=== PATIENT | female | born 1965 | race Caucasian/White ===

== ENCOUNTER 2020-11-21 15:20 | Outpatient (REF) | payer OTHER, SELFPAY ==
--- NOTE | ~2020-11-21 | MM_ITS ---
EXAMINATION: MM SCREENING DIGITAL BREAST TOMOSYNTHESIS, BILATERAL CLINICAL INFORMATION: Screening. Asymptomatic. History right breast cancer 2010 and benign right breast biopsy 2013 (lipoma). Due for yearly. COMPARISON: Mammography: 06/24/2019; outside mammography 05/28/2018 ([facility], [place], [place]). TECHNIQUE: Digital breast tomosynthesis is performed in both the craniocaudal and mediolateral oblique views along with computer-aided detection (CAD). Synthesized 2D images are generated from the tomosynthesis. FINDINGS: The breasts are heterogeneously dense, which may obscure small masses (ACR BI-RADS breast composition Category c). There are no significant masses, abnormal calcifications, or other abnormalities. Breast tissue composition borders on average fibroglandular. Parenchymal pattern is similar to prior studies. There are stable post therapy changes on the right with scarring mid to posterior 11:30 o'clock position. The axilla and skin contours are unremarkable. MM/MM tomosynthesis screening BI IMPRESSION: No mammographic evidence of malignancy. Post therapy changes right breast. ASSESSMENT: BI-RADS 2: Benign RECOMMENDATION: Routine annual mammography screening. This patient's information was entered into a reminder system with a target due date for their next mammogram.
== END 2020-11-21 15:21 | disposition home or self-care (01) ==
LOC: HO.MAMMO 15:20
PROVIDERS: PCP Internal Medicine; Visit Provider Internal Medicine
DX: Z12.31 Encounter for screening mammogram for malignant neoplasm of breast (principal)
CPT/HCPCS: 77063; 77067

== ENCOUNTER 2021-11-22 15:29 | Outpatient (REF) | payer OTHER, SELFPAY ==
--- NOTE | ~2021-11-22 | MM_ITS ---
EXAMINATION: MM SCREENING DIGITAL BREAST TOMOSYNTHESIS, BILATERAL CLINICAL INFORMATION: Screening. Asymptomatic. COMPARISON: Mammography: November 21, 2020 and studies dating back to June 01, 2010 TECHNIQUE: Digital breast tomosynthesis is performed in both the craniocaudal and mediolateral oblique views along with computer-aided detection (CAD). Synthesized 2D images are generated from the tomosynthesis. FINDINGS: The breasts are heterogeneously dense, which may obscure small masses (ACR BI-RADS breast composition Category c). There is a stable parenchymal pattern seen bilaterally. Region of architectural distortion from previous lumpectomy is seen about the superior aspect of the right breast. No new suspicious grouping of microcalcifications or abnormal dominant mass identified. MM/MM tomosynthesis screening BI IMPRESSION: There are no significant changes from prior study. ASSESSMENT: BI-RADS 2: Benign RECOMMENDATION: Routine annual mammography screening. This patient's information was entered into a reminder system with a target due date for their next mammogram.
== END 2021-11-22 15:30 | disposition home or self-care (01) ==
LOC: HO.MAMMO 15:29
PROVIDERS: Visit Provider Internal Medicine
DX: Z12.31 Encounter for screening mammogram for malignant neoplasm of breast (principal)
CPT/HCPCS: 77063; 77067

== ENCOUNTER 2021-12-19 14:02 | Outpatient (REF) | payer OTHER, SELFPAY ==
--- NOTE | ~2021-12-19 | US_ITS ---
EXAMINATION: US PELVIS CLINICAL INFORMATION: Irregular menstruation. COMPARISON: Ultrasound pelvis 07/23/2019 TECHNIQUE: Ultrasound of the pelvis is performed using both transabdominal and transvaginal transducers along with Doppler. Transvaginal imaging is performed due to inadequate visualization transabdominally. FINDINGS: Uterus: The uterus is anteverted, anteflexed and measures 11.3 cm in length, 5.6 mL in AP and 7.0 cm in transverse dimension. The double wall endometrial thickness is 0.7 cm. There is trace fluid visualized in the endometrial canal. The uterus is smooth in contour and has normal myometrial echogenicity. There are two (2) hypoechoic lesions visualized: 1. Lesion in the posterior upper body of uterus measuring 1.6 x 1.0 x 1.3 cm. Previously it measured 1.3 x 1.2 x 1.4 cm. 2. Lesion in the right posterior body of uterus measuring 1.6 x 1.2 x 0.9 cm. It is new. Adnexa: Both ovaries are visualized. There is normal color flow to the adnexa. There is no ovarian torsion. There is no pelvic ascites or fluid collection. Right ovary measures 1.8 x 1.0 x 1.8 cm and volume 1.7 mL. There is echogenic calcification with some fluid surrounding the ovary likely within the fallopian tube, question hydrosalpinx. Left ovary measures 1.3 x 0.9 x 0.9 cm. Ovary is best visualized on transabdominal ultrasound. There is anechoic cyst measuring 1.3 x 0.9 x 0.9 cm. US/US pelvic and transvaginal IMPRESSION: 1. At least 2 uterine fibroids noted. 2. Right hydrosalpinx is suspected. 3. Simple cyst left ovary.
== END 2021-12-19 14:03 | disposition home or self-care (01) ==
LOC: HO.US 14:02
PROVIDERS: PCP Internal Medicine; Visit Provider Advanced Practice Midwife
DX: R23.2 Flushing (principal); N92.6 Irregular menstruation, unspecified
CPT/HCPCS: 36415; 76830; 76856; 83001

== ENCOUNTER 2022-01-02 13:39 | Outpatient (REF) | payer OTHER, SELFPAY ==
[2022-01-06 00:27] LABS: HPV mRNA E6/E7 rflx Not Detected (Not Detected)
== END 2022-01-02 13:40 | disposition home or self-care (01) ==
LOC: HO.LAB 13:39
PROVIDERS: PCP Internal Medicine; Visit Provider Advanced Practice Midwife
DX: Z12.4 Encounter for screening for malignant neoplasm of cervix (principal); Z11.51 Encounter for screening for human papillomavirus (HPV); N93.9 Abnormal uterine and vaginal bleeding, unspecified; N95.0 Postmenopausal bleeding
CPT/HCPCS: 58100; 87624; 88142; 88305

== ENCOUNTER → 2022-01-26 13:17 | Outpatient (BNVA) | payer OTHER, SELFPAY | PROVIDERS: PCP Internal Medicine; Visit Provider Advanced Practice Midwife | DX: Z71.2 Person consulting for explanation of examination or test findings (principal); N92.6 Irregular menstruation, unspecified | CPT/HCPCS: 99212 ==

== ENCOUNTER 2022-12-27 09:06 | Outpatient (REF) | payer OTHER, SELFPAY ==
--- NOTE | ~2022-12-27 | MM_ITS ---
EXAMINATION: MM SCREENING DIGITAL BREAST TOMOSYNTHESIS, BILATERAL CLINICAL INFORMATION: Screening. Asymptomatic. The patient is status post right breast excision for a lipoma in the remote past. COMPARISON: Mammography: This study is compared with prior exams dating back to 2019. TECHNIQUE: Digital breast tomosynthesis is performed in both the craniocaudal and mediolateral oblique views along with computer-aided detection (CAD). Synthesized 2D images are generated from the tomosynthesis. FINDINGS: The breasts are heterogeneously dense, which may obscure small masses (ACR BI-RADS breast composition Category c). There are no significant masses, abnormal calcifications, or other abnormalities. There are architectural changes in the right breast from prior surgery for benign disease. MM/MM tomosynthesis screening BI IMPRESSION: No mammographic evidence of malignancy. ASSESSMENT: BI-RADS BI-RADS 2 - Benign Findings RECOMMENDATION: Routine annual mammography screening. 1 year F/U This examination should not preclude the clinical evaluation of a suspicious palpable abnormality. This patient's information was entered into a reminder system with a target due date for their next mammogram.
== END 2022-12-27 09:07 | disposition home or self-care (01) ==
LOC: HO.MAMMO 09:06
PROVIDERS: PCP Internal Medicine; Visit Provider Internal Medicine
DX: Z12.31 Encounter for screening mammogram for malignant neoplasm of breast (principal)
CPT/HCPCS: 77063; 77067

== ENCOUNTER → 2022-12-27 09:15 | Outpatient (BNV) | payer OTHER, SELFPAY | PROVIDERS: PCP Internal Medicine; Visit Provider Radiology Diagnostic Radiology | DX: Z12.31 Encounter for screening mammogram for malignant neoplasm of breast (principal) | CPT/HCPCS: 77063; 77067 ==

== ENCOUNTER 2022-12-27 09:41 | Outpatient (AMB) | payer OTHER, SELFPAY ==
--- NOTE | 2022-12-27 09:57 | A.OFFVIS_ITS ---
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 Scribed for SHAWN Soto by Rossana Springer vp medical, on 12/27/2022 at 10:20 am EST. Filler Shaker: Filler Shaker Present (Trish) Allergies No Known Allergies Allergy (Verified 12/27/22 09:58) Is last menstrual period known: Yes Last menstrual period: 12/11/22 HPI HPI Comments History of Present Illness Details She is a premenopausal woman presenting for annual exam. Reports emotion melt downs. Denies any new onset stresses. Patient admits she tries to eat a healthy diet including Calcium and Vitamin D. She stays active with exercise. She had her menses for the past 2 months but did not have it for 6 months prior. LMP 12/11/22. Denies vaginal itching and irritation. Reports itching in inner left thigh and has use OTC cortisone. Denies family hx of colon and ovarian cancer. Last pap smear 01/02/22. Last mammogram today, pending results. UTD on colonoscopy. 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 Sexual orientation: Straight/Heterosexual Gender identity: Female Female Reproductive History Menstrual Duration of menses: 6-7 days Date of last menstrual period: 12/11/22 control method: permanent sterilization Permanent Sterilization: BTL Total pregnancies: 2 Full term: 2 Number of Living Children: 2 Date of last pap smear: 01/02/22 (neg pap and hpv) Date of Mammogram: 11/22/21 ([facility]) Physical Exam Vital Signs: Last Vital Signs BP 110/74 12/27/22 09:58 BMI result Body Mass Index 29.5 Const General: cooperative, healthy appearing, no acute distress, well developed and alert Orientation/consciousness: patient oriented x3 HEENT Head: Yes normal to inspection Eyes General: appearance normal, both eyes and all related structures Neck Neck: Yes normal visual inspection Thyroid: Thyroid normal Chest Chest palpation & inspection: normal inspection of the chest Breast/axilla inspection: normal inspection of the breasts (no puckering, dimpling, peau de orange, retraction, discharge, masses) Breast/axilla palpation: normal palpation of the breasts Resp Effort & Inspection: normal respiratory effort GI Inspection: Yes normal to inspection Palpation (GI): Soft to palpation (to palpation) Rectal Exam - Female: deferred General: Yes bladder normal to inspection External Female Exam: normal external appearance and normal appearance of the urethra Speculum Exam - Vagina: normal appearance of the vagina, normal palpation and normal vaginal discharge Speculum Exam - Cervix: normal appearance of the cervix and normal palpation Bimanual exam- vagina & uterus: normal palpation and normal palpation Bimanual Exam- Adnexa, other: normal adnexae and no masses Skin Other: itching area in the left upper in thigh with a scratch Neuro General: patient oriented x3 Cognition (Neuro): normal cognition Extrem General: Yes normal to inspection Psych Attitude: cooperative Thought process: Normal thought process present Results Reviewed Results Reviewed: EXAMINATION:? US PELVIS CLINICAL INFORMATION:? Irregular menstruation. COMPARISON: Ultrasound pelvis 07/23/2019 TECHNIQUE: Ultrasound of the pelvis is performed using both transabdominal and transvaginal transducers along with Doppler. Transvaginal imaging is performed due to inadequate visualization transabdominally. FINDINGS: Uterus: The uterus is anteverted, anteflexed and measures 11.3 cm in length, 5.6 mL in AP and 7.0 cm in transverse dimension. The double wall endometrial thickness is 0.7 cm. There is trace fluid visualized in the endometrial canal. The uterus is smooth in contour and has normal myometrial echogenicity. ? There are two (2) hypoechoic lesions visualized: 1. Lesion in the posterior upper body of uterus measuring 1.6 x 1.0 x 1.3 cm. Previously it measured 1.3 x 1.2 x 1.4 cm. 2. Lesion in the right posterior body of uterus measuring 1.6 x 1.2 x 0.9 cm. It is new. Adnexa: Both ovaries are visualized. There is normal color flow to the adnexa. There is no ovarian torsion.? There is no pelvic ascites or fluid collection. Right ovary measures 1.8 x 1.0 x 1.8 cm and volume 1.7 mL. There is echogenic calcification with some fluid surrounding the ovary likely within the fallopian tube, question hydrosalpinx. Left ovary measures 1.3 x 0.9 x 0.9 cm. Ovary is best visualized on transabdominal ultrasound. There is anechoic cyst measuring 1.3 x 0.9 x 0.9 cm. US/US pelvic and transvaginal IMPRESSION: ? 1. At least 2 uterine fibroids noted. ? 2. Right hydrosalpinx is suspected. ? 3. Simple cyst left ovary. Collected: 01/02/22 Location: [facility] Received: 01/03/22 Diagnosis Endometrium, biopsy:? Disordered weakly proliferative endometrium; no atypia or hyperplasia identified. Clinical History PMB Microscopic Description Microscopic sections reviewed. Material Received Endometrial biopsy Gross Description Received in formalin labeled EMB is a 1.8 x 1.5 x 0.45 cm. aggregate of multiple soft, congested and hemorrhagic, red-maroon tissue fragments and blood.? The specimen is submitted in toto in a single cassette labeled A. Assessment & Plan Assessment & Plan (1) Encounter for well woman exam: Code(s): Z01.419 - Encounter for gynecological examination (general) (routine) without abnormal findings Plan: Discussed: Current recommendations for pap smears per ASCCP guidelines. Breast awareness and periodic self breast exams. Encouraged yearly mammograms. Maintaining a healthy lifestyle including a well balanced diet including Calcium and Vitamin D and routine exercise. All of her questions and concerns were addressed to the best of my ability RTO in 1 year for AG. (2) PMB (postmenopausal bleeding): Code(s): N95.0 - Postmenopausal bleeding Plan: Discussed work up including pelvic US and EMB. The EMB purpose was explained to rule out atypia, hyperplasia and uterine cancer. Reviewed procedure and instructed to take ibuprofen with food 1 hour prior to procedure. Go to ER with any prolonged or heavy bleeding. All of her questions and concerns were addressed to the best of my ability and shared decision making: for EMBx. She is agreeable to plan of care. Return in 2 weeks for test results and EMBX. (3) Fibroids: Code(s): D21.9 - Benign neoplasm of connective and other soft tissue, unspecified Plan: Leiomyoma: common pelvic neoplasm. Differential diagnosis-may include leiomyosarcoma which is a rare uterine sarcoma 3-7/100,000, difficult to dist inguish from fibroids on ultrasound from uterine sarcoma's. Unlikely any single test will have a highly positive predictive value. Hysterectomy is not recommended for sole purpose of excluding malignant neoplasm. Report any PMB/AUB, pelvic pressure, bloating, or pain. Pelvic US ordered for management. Expectant management follow up in 6 months, then yearly for stability. (4) Pruritus: Code(s): L29.9 - Pruritus, unspecified Plan: Advised to use OTC hydrocortisone and wear loose clothing or boys shorts. Orders: Orders US pelvic and transvaginal Today D21.9 - Benign neoplasm of connective and other soft tissue, unspecified, N95.0 - Postmenopausal bleeding Coding Level of Care Code Est Pt Prev Care 40-64y(40431) Diagnoses Encounter for well woman exam Z01.419 PMB (postmenopausal bleeding) N95.0 Fibroids D21.9 Pruritus L29.9
[2022-12-27 09:58] VITALS: BP 110/74; BMI 29.5
== END 2022-12-27 10:39 | disposition home or self-care (01) ==
LOC: HO.HWS 09:41
PROVIDERS: PCP Internal Medicine; Visit Provider Advanced Practice Midwife
DX: Z01.419 Encounter for gynecological examination (general) (routine) without abnormal findings (principal); N95.0 Postmenopausal bleeding; D21.9 Benign neoplasm of connective and other soft tissue, unspecified; L29.9 Pruritus, unspecified
CPT/HCPCS: 99396

== ENCOUNTER 2023-01-02 10:51 | Outpatient (REF) | payer OTHER, SELFPAY ==
--- NOTE | ~2023-01-02 | US_ITS ---
EXAMINATION: US PELVIS CLINICAL INFORMATION: Postmenopausal bleeding COMPARISON: 12/19/2021 and previous TECHNIQUE: Ultrasound of the pelvis is performed using both transabdominal and transvaginal transducers along with Doppler. Transvaginal imaging is performed due to inadequate visualization transabdominally. FINDINGS: Uterus: The uterus is anteverted and measures 10.9 x 5.9 x 7 cm. The double wall endometrial thickness is 6 mm. The endometrium appears heterogeneous with a trace of fluid in the endometrial canal. No discrete mass or polyp is identified. The uterus is smooth in contour and has heterogeneous myometrial echogenicity. There is an intramural fibroid in the posterior body of uterus measuring 1.5 x 1.5 x 1.1 cm (previous 1.6 x 1 x 1.3 cm). There is a subserosal fibroid at the right fundus measuring 1.4 x 1.3 x 1.1 cm (previous 1.6 x 1.2 x 0.9 cm). There are nabothian cysts in the cervix. Adnexa: Both ovaries are visualized. There is normal color flow to the adnexa. There is no ovarian torsion. There is no pelvic ascites or fluid collection. There is no adnexal mass. Right ovary measures 1.5 x 1.5 x 1.3 cm. Left ovary measures 2.3 x 1.5 x 1.9 cm. US/US pelvic and transvaginal IMPRESSION: The endometrium is at the upper limits of normal in thickness and appears somewhat irregular with a small amount of fluid in the endometrial canal. No discrete mass or polyp is identified. Uterine fibroids without significant change. No adnexal mass.
== END 2023-01-02 10:52 | disposition home or self-care (01) ==
LOC: HO.US 10:51
PROVIDERS: PCP Internal Medicine; Visit Provider Advanced Practice Midwife
DX: N95.0 Postmenopausal bleeding (principal); D21.9 Benign neoplasm of connective and other soft tissue, unspecified
CPT/HCPCS: 76830; 76856

== ENCOUNTER 2023-01-17 08:10 | Outpatient (REF) | payer OTHER, SELFPAY ==
[2023-01-18 23:58] LABS: Follicle Stimulating Hormone 48.7 mIU/mL
== END 2023-01-17 08:11 | disposition home or self-care (01) ==
LOC: HO.LAB 08:10
PROVIDERS: PCP Internal Medicine; Visit Provider Advanced Practice Midwife
DX: N95.0 Postmenopausal bleeding (principal); D21.9 Benign neoplasm of connective and other soft tissue, unspecified; R23.2 Flushing; Z71.2 Person consulting for explanation of examination or test findings
CPT/HCPCS: 36415; 58100; 81025; 83001; 88305

== ENCOUNTER 2023-01-17 08:10 | Outpatient (AMB) | payer OTHER, SELFPAY ==
--- NOTE | 2023-01-17 08:13 | A.OFFVIS_ITS ---
Intake Vital Signs 01/17/23 08:14 Height 5 ft 5 in Weight 178 lb BMI 29.6 BP 100/66 Intake Visit Reasons: EMB/Ultrasound Intake Note: The patient agreed to use of a medical chemist during this encounter. Scribed for SHAWN Soto by Rossana Springer medical chemist, on 01/17/2023 at 8:33 am EST. Animal Care Service Worker: Animal Care Service Worker Present (Trish) Allergies No Known Allergies Allergy (Verified 01/17/23 08:13) Is last menstrual period known: Yes Last menstrual period: 12/11/22 HPI HPI Comments History of Present Illness Details She is here to discuss US / lab results and to have an EMB today regarding PMB. Last bleeding episode was 12/11/22. Reports hot flashes. 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 Sexual orientation: Straight/Heterosexual Gender identity: Female Female Reproductive History Menstrual Date of last menstrual period: 12/11/22 Physical Exam Vital Signs: Last Vital Signs BP 100/66 01/17/23 08:14 BMI result Body Mass Index 29.6 Const General: cooperative, healthy appearing, comfortable, no acute distress, well developed, alert and awake Other: General: Yes bladder normal to palpation External Female Exam: normal external appearance and normal appearance of the urethra Speculum Exam - Vagina: normal appearance of the vagina, normal palpation and normal vaginal discharge Speculum Exam - Cervix: normal appearance of the cervix and normal palpation Bimanual exam- vagina & uterus: normal bimanual exam, normal palpation, bladder normal to palpation and normal palpation Bimanual Exam- Adnexa, other: normal adnexae and no masses Office Procedures Endometrial Biopsy Details: HPI The patient is here today for an endometrial biopsy for AUB to rule out any pathology including atypical, hyperplasia or cancer cells of the uterus. She was counseled regarding anticipatory guidance for the procedure including the risks for pain, infection, bleeding, perforation, potential injury to the tissues may include the cervix, uterus, tubes, bladder and bowels. These injuries may include further treatment and evaluation including surgery, blood transfusions, antibiotics, hospitalizations and anesthesia. Permanent injury and scarring can occur. She was consented for the procedure, and the consent forms were signed. She is agreeable to have the procedure today. All questions were answered. A urine test was obtained and was negative. She denies any risks to . Procedure The patient was placed in the dorsal lithotomy position and a sterile speculum inserted. Using aseptic technique for the procedure. The cervix was cleansed with Betadine x 3 swabs A single toothed tenaculum was placed on the cervix for stabilization and the uterus was sounded to 9 cm with a 4mm pipelle for 4 passes to obtain adequate sample. Minimal bleeding was observed. The patient tolerated the procedure well and was in good condition when leaving the department. The tissue sample was placed in formalin in a patient labeled container by staff assisting and sent to the pathology department for processing and interpretation. The patient tolerated the procedure well. Plan Nothing in the vagina including: tampons, douching or sex for 3 days. There may be some post procedure bleeding for several days, this bleeding is usually light and may turn to a light brown or pink color. Mild cramps may occur. You may take an over the counter mild analgesic such as Tylenol or Advil (if no allergies) per the manufacturers recommendation on dosing, frequency, and follow the directions completely. Call the office if any: SOB, fatigue, lightheadedness/dizziness, abd pain (worse than cramping), bloating or abd distention, foul odor or abnormal discharge or heavy vaginal bleeding. You will be scheduled for a follow up visit for results, either in person or on the phone when the results are completed in a few weeks. [id number] Biopsy Results AMB Test Urine AMB Test Urine Negative Last Edit by BIJAL Alcantar on 01/17/23 08:22 Results Reviewed Results Reviewed: Laboratory Last Values Tst Clinic Negative 01/17/23 08:21 12/19/21 - FSH: 25.0 EXAMINATION: US PELVIS CLINICAL INFORMATION: Postmenopausal bleeding COMPARISON: 12/19/2021 and previous TECHNIQUE: Ultrasound of the pelvis is performed using both transabdominal and transvaginal transducers along with Doppler. Transvaginal imaging is performed due to inadequate visualization transabdominally. FINDINGS: Uterus: The uterus is anteverted and measures 10.9 x 5.9 x 7 cm. The double wall endometrial thickness is 6 mm. The endometrium appears heterogeneous with a trace of fluid in the endometrial canal. No discrete mass or polyp is identified. The uterus is smooth in contour and has heterogeneous myometrial echogenicity. There is an intramural fibroid in the posterior body of uterus measuring 1.5 x 1.5 x 1.1 cm (previous 1.6 x 1 x 1.3 cm). There is a subserosal fibroid at the right fundus measuring 1.4 x 1.3 x 1.1 cm (previous 1.6 x 1.2 x 0.9 cm). There are nabothian cysts in the cervix. Adnexa: Both ovaries are visualized. There is normal color flow to the adnexa. There is no ovarian torsion. There is no pelvic ascites or fluid collection. There is no adnexal mass. Right ovary measures 1.5 x 1.5 x 1.3 cm. Left ovary measures 2.3 x 1.5 x 1.9 cm. US/US pelvic and transvaginal IMPRESSION: The endometrium is at the upper limits of normal in thickness and appears somewhat irregular with a small amount of fluid in the endometrial canal. No discrete mass or polyp is identified. Uterine fibroids without significant change. No adnexal mass. Assessment & Plan Assessment & Plan (1) Encounter to discuss test results: Code(s): Z71.2 - Person consulting for explanation of examination or test findings Plan: Discussed: The endometrium is at the upper limits of normal in thickness and appears somewhat irregular with a small amount of fluid in the endometrial canal. No discrete mass or polyp is identified. Uterine fibroids without significant change. No adnexal mass. All of her questions and concerns were addressed to the best of my ability and shared decision making. She is agreeable to plan of care. (2) PMB (postmenopausal bleeding): Code(s): N95.0 - Postmenopausal bleeding Plan: Labs ordered. EMB today. See procedure note. (3) Fibroids: Code(s): D21.9 - Benign neoplasm of connective and other soft tissue, unspecified (4) Hot flashes: Code(s): R23.2 - Flushing (5) Hot flashes: Code(s): R23.2 - Flushing Orders: Orders Follicle Stimulating Hormone Today R23.2 - Flushing AMB HCG Urine Test Today Z32.02 - Encounter for test, result negative Surgical Today D21.9 - Benign neoplasm of connective and other soft tissue, unspecified, N95.0 - Postmenopausal bleeding Coding Level of Care Code Procedure Only Diagnoses Encounter to discuss test results Z71.2 PMB (postmenopausal bleeding) N95.0 Fibroids D21.9 Hot flashes R23.2 CPT Codes Endometrial Biopsy - CPT: 27106-[id number] Biopsy ([id number])
[2023-01-17 08:14] VITALS: BP 100/66; BMI 29.6
== END 2023-01-17 08:51 | disposition home or self-care (01) ==
LOC: HO.HWSW 08:10
PROVIDERS: PCP Internal Medicine; Visit Provider Advanced Practice Midwife
DX: N95.0 Postmenopausal bleeding (principal); D25.9 Leiomyoma of uterus, unspecified; R23.2 Flushing; Z32.02 Encounter for pregnancy test, result negative
CPT/HCPCS: 58100

== ENCOUNTER 2023-01-30 12:42 | Outpatient (AMB) | payer OTHER, SELFPAY ==
--- NOTE | 2023-01-30 12:42 | MHC.OFFVIS ---
Intake Intake Visit Reasons: EMB Results/ok per [facility] Intake Note: cell # [phone] The patient agreed to use of a neuropsychology medical consultant during this encounter. Scribed for SHAWN Soto by Rossana Springer neuropsychology medical consultant, on 01/30/2023 at 1:34 pm EST. Allergies No Known Allergies Allergy (Verified 01/17/23 08:13) HPI HPI Comments History of Present Illness Details Doximity live video 1:08 pm . Phone Call due to Covid-19 Pandemic. Pt did not answer. Doximity live video 1:34 pm - 1:44 pm. Phone Call due to Covid-19 Pandemic. Video Audio was utilized due to video disruption. She presents via phone/live video to discuss EMB results regarding PMB. History of breast cancer in [address] [place], not having any MR's, and has yearly mammograms with her PCP. 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 Clinical History PMB, fibroids Microscopic Description Microscopic sections reviewed. Material Received Endometrial biopsy Assessment & Plan Assessment & Plan (1) Encounter to discuss test results: Code(s): Z71.2 - Person consulting for explanation of examination or test findings Plan: Discussed: EMB results of: Fragments of weakly proliferative endometrium with stromal breakdown; negative for atypia, hyperplasia or malignancy. Discussed risks for uterine cancer with PMB and proliferative endometrium. Surveilance, medical or surgical management. Recommendation of EMB every 3-6 months, not a candidate for hormonal treatment with OC's or IUD due to prior breast cancer. Consider consult with specialist at [facility] for care; hysterectomy options, she accepts- referral sent. Also referral for high risk breast health surveillance/ CHEK 2 mutation- to Dr. Penaloza All of her questions and concerns were addressed to the best of my ability and shared decision making. She is agreeable to plan of care. (2) PMB (postmenopausal bleeding): Code(s): N95.0 - Postmenopausal bleeding (3) History of breast cancer: Code(s): Z85.3 - Personal history of malignant neoplasm of breast Plan: Referral sent for breast health. (4) Gene mutation: Comment: CHEK2 Mutation see scanned document from [facility] Genetics 10/24/19 Code(s): Z15.89 - Genetic susceptibility to other disease Orders: Referrals SILK SCREEN PROCESSOR Referral C50.919 - Malignant neoplasm of unspecified site of unspecified female breast, N95.0 - Postmenopausal bleeding, Z15.02 - Genetic susceptibility to malignant neoplasm of ovary, Z15.09 - Genetic susceptibility to other malignant neoplasm, Z15.89 - Genetic susceptibility to other disease, Z85.3 - Personal history of malignant neoplasm of breast Breast Surgery Referral Z15.89 - Genetic susceptibility to other disease, Z85.3 - Personal history of malignant neoplasm of breast Telehealth Telehealth Location of provider rendering services: practice address Location of patient: other Patient Identification confirmed using: Name, : Yes Telehealth method: video Patient verbally consented to treatment: Yes Patient verbally consented to billing insurance company: Yes Patient informed of any privacy concerns related to visit: Yes Coding Level of Care Code Tele Est Pt Level 3 (98289) Diagnoses Encounter to discuss test results Z71.2 PMB (postmenopausal bleeding) N95.0 History of breast cancer Z85.3 Gene mutation Z15.89
== END 2023-01-30 13:47 | disposition home or self-care (01) ==
LOC: HO.HWS 12:42
PROVIDERS: PCP Internal Medicine; Visit Provider Advanced Practice Midwife
DX: Z71.2 Person consulting for explanation of examination or test findings (principal); N95.0 Postmenopausal bleeding; Z85.3 Personal history of malignant neoplasm of breast; Z15.89 Genetic susceptibility to other disease
CPT/HCPCS: 99213

== ENCOUNTER → 2023-01-30 12:42 | Outpatient (BNVA) | payer OTHER, SELFPAY | PROVIDERS: PCP Internal Medicine; Visit Provider Advanced Practice Midwife ==

== ENCOUNTER → 2023-02-20 14:03 | Outpatient (BNVA) | payer OTHER, SELFPAY | PROVIDERS: PCP Internal Medicine; Visit Provider Surgery ==

== ENCOUNTER 2023-06-19 15:03 | Outpatient (REF) | payer OTHER, SELFPAY ==
--- NOTE | ~2023-06-19 | MR_ITS ---
EXAMINATION: MR BREAST WITHOUT AND WITH CONTRAST, BILATERAL CLINICAL INFORMATION: High-risk screening. Right lumpectomy for breast cancer 2010. Right excision for lipoma 2012. Strong family history of breast cancer including mother and sister premenopausal in their 40s. Dense breasts. COMPARISON: 05/23/2010 breast MRI. Mammography from 12/27/2022. TECHNIQUE: Imaging was performed with a dedicated breast coil. Prior to the administration of contrast, bilateral axial T1 and bilateral axial T2 weighted sequences were obtained. After the uneventful administration of?8 mL of Gadavist, dynamic contrast-enhanced VIBRANT series through the breasts in the axial plane were performed. Subtracted images were performed and reviewed. A delayed sagittal sequence through both breasts was acquired. Additionally, CAD post-processing, including maximum intensity projections, 3-D reconstructions and kinetic analysis, were performed an independent workstation and reviewed by the interpreting radiologist is a portion of this exam. FINDINGS: The breasts are comprised of heterogeneous, dense fibroglandular parenchyma. The tissue undergoes moderate background enhancement. LEFT BREAST: There is an oval 6 mm enhancing mass in the left breast 4 o'clock position (series 100 image 96/120) projecting 4 cm from the nipple. Mass is T2 bright with mixed enhancement kinetics. Visible fatty hilum favors an intraparenchymal node. Given differences in technique, no change compared with 2020. Advise yearly followup. No dominant left breast mass or architectural distortion. RIGHT BREAST: Architectural distortion at 12 o'clock (series 100 image 52/120) consistent with postlumpectomy change. A 4 mm focus of enhancement is noted at the center of the distortion, T2 isointense with type II plateau enhancement kinetics. A 6 mm non-mass enhancement is noted at 9 o'clock (series 100 image 70), 9 cm from the nipple. This area is T2 isointense with type II plateau enhancement kinetics. There is a patchy 15 mm non-mass enhancement in the right breast 5 o'clock position (series 100 image 81/120) 12 cm from the nipple. This dominant non-mass enhancement is T2 bright with predominantly type I enhancement kinetics. Review of multiplanar reformats, color mapping and volume renderings demonstrates some motion artifact affecting the right breast. Given this finding I favor short-term six-month follow-up bilateral breast MRI over biopsy at this time. There is no suspicious internal mammary chain or axillary adenopathy. Limited views of the chest and abdomen are unremarkable. MR/MR breast BI wo/w con IMPRESSION: Several minor areas of non-mass enhancement are noted in the right breast, the smallest of which is associated with lumpectomy site. Images of the right breast demonstrate mild motion artifact best depicted on color mapping. Recommend short-term 6-month follow-up bilateral breast MRI. A small stable left breast mass has the appearance of an intraparenchymal node. Recommend followup. ASSESSMENT: LEFT BREAST: BI-RADS 2, benign findings. RIGHT BREAST: BI-RADS 3, probably benign findings. RECOMMENDATIONS: A repeat bilateral breast MRI in 6 months.
[2023-06-19] MEDS: gadobutroL 10 ML VIAL IVPUSH (15:45)
== END 2023-06-19 15:04 | disposition home or self-care (01) ==
LOC: HO.MRI 15:03
PROVIDERS: PCP Internal Medicine; Visit Provider Surgery
DX: Z91.89 Other specified personal risk factors, not elsewhere classified (principal); Z80.3 Family history of malignant neoplasm of breast; Z85.3 Personal history of malignant neoplasm of breast; Z15.89 Genetic susceptibility to other disease
CPT/HCPCS: 77049; A9585

== ENCOUNTER 2023-07-01 15:00 | Outpatient (AMB) | payer OTHER, SELFPAY ==
[2023-07-01 15:01] VITALS: BP 123/69; PULSE 63; BMI 30.1
--- NOTE | 2023-07-01 15:01 | MHC.OFFVIS ---
Intake Vital Signs 07/01/23 15:01 Height 5 ft 5 in Weight 181 lb BMI 30.1 BP 123/69 Blood Pressure Location Rt brachial Position Sitting Pulse 63 Intake Visit Reasons: Breast exam, history of breast ca Intake Note: This patient presents for a follow-up breast examination assessment. Patient c/o; reports no breast complaints at this time. Acid Supervisor Required: No Accompanied by: Self / Same As Patient Allergies No Known Allergies Allergy (Verified 07/01/23 15:11) HPI Breast exam, history of breast ca HPI Details She is here for follow-up for a personal history of breast cancer. She was diagnosed to have right breast cancer in 2010 while she lived in [place]. She said she had a lumpectomy at that time. She stated that she did not go for radiation of the breast as she was told that this was very early stage cancer. She says she was on tamoxifen for 5 years. She had moved to the area and has been here for several years. She has been undergoing yearly mammograms Review of her records however show that she had a genetic testing done in [facility] and she tested positive for a CHEK2 mutation. She was therefore referred to us by her network operations center engineer. Her menarche was at the age of 12. She had her 1st at age of 17. She had 3 pregnancies. She says she seems to be undergoing menopause at this time. Her mother was diagnosed to have breast cancer in her late 40s. Her sister was diagnosed to have cancer in her late 60s. She denies any palpable breast masses or any nipple or skin change. I had seen her in the office last February,. I had scheduled her for an MRI of the breast for screening. She had this done 2 weeks ago and she is here to discuss the results. 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 Sexual orientation: Straight/Heterosexual Gender identity: Female Female Reproductive History Menstrual Age of Menarche: 12 Physical Exam Vital Signs: Last Vital Signs Pulse 63 07/01/23 15:01 BP 123/69 07/01/23 15:01 BMI result Body Mass Index 30.1 Const General: comfortable and no acute distress Orientation/consciousness: patient oriented x3 Neck Neck: Yes no lymphadenopathy Chest Other: No palpable breast masses, no axillary lymphadenopathy, no nipple or skin changes Resp Auscultation: clear to auscultation bilaterally Cardio Rhythm: regular rhythm GI Palpation (GI): Soft to palpation, nontender and no guarding Neuro General: patient oriented x3 Assessment & Plan Assessment & Plan (1) History of breast cancer: Code(s): Z85.3 - Personal history of malignant neoplasm of breast Plan: She has a history of breast cancer in 2010 and has a CHEK2 mutation. I have reviewed her MRI from this month. This shows some changes in the right breast that is likely secondary to her previous lumpectomy. A follow-up MRI was recommended in 6 months Current exam does not reveal any palpable breast masses or any axillary lymphadenopathy I am going to order for a follow-up MRI sometime in December and I will see her in the office thereafter. She says she understands the plan well. Orders: Orders breast BI wo/w con 07/01/23 Z15.89 - Genetic susceptibility to other disease Coding Level of Care Code Est Pt Level 3 (11605) Diagnoses History of breast cancer Z85.3
== END 2023-07-01 15:36 | disposition home or self-care (01) ==
PROVIDERS: PCP Internal Medicine; Visit Provider Surgery
DX: Z85.3 Personal history of malignant neoplasm of breast (principal)
CPT/HCPCS: 99213

== ENCOUNTER → 2023-07-01 15:00 | Outpatient (BNVA) | payer OTHER, SELFPAY | PROVIDERS: PCP Internal Medicine; Visit Provider Surgery | DX: Z85.3 Personal history of malignant neoplasm of breast (principal) | CPT/HCPCS: 99212 ==

== ENCOUNTER 2023-09-13 14:02 | Outpatient (AMB) | payer OTHER, SELFPAY ==
[2023-09-13 14:07] VITALS: BP 117/63; PULSE 75; BMI 30.1
--- NOTE | 2023-09-13 14:07 | A.OFFVIS_ITS ---
Vital Signs 09/13/23 14:07 Height 5 ft 5 in Weight 180 lb 12.465 oz BMI 30.1 BP 117/63 Blood Pressure Location Lt brachial Position Sitting Pulse 75 Intake Visit Reasons: Colonoscopy Screening Intake Note: Josee presents in the office as a colonoscopy screening. CC: She states that she is just due for a consultation. 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 female PMB, fibroids, malignant neoplasm of right breast in 2010 with lumpectomy is here today for pre colonoscopy screening.? Patient was sent to us by her PCP.? Patient had colonoscopy about 7 years ago or so and was told that she had 1 polyp. Colonoscopy was done at the [facility] in [place]. Patient denies any gastrointestinal symptoms in the past or at present.? Denies any personal or family history of gastrointestinal disease, colon polyps, or CRC.? However patient reports that her sister just had colonoscopy recently and had issues after, unsure if was polyps or something serious. Patient is to find out. Denies history of difficulty with sedation or anesthesia in the past.? Negative for history of sleep apnea.? Denies any history of cardiac, renal, pulmonary, or hepatic disease.?? No history of infectious? diseases like hepatitis A, B, C, HIV or tuberculosis.? 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 Pruritus Fibroids PMB (postmenopausal bleeding) Gene mutation History of breast cancer Surgical History Hx of colonoscopy History of lumpectomy of right breast History of back surgery History of appendectomy Hx of tubal ligation Family History Mother History of breast cancer Sister History of breast cancer Social History Alcohol intake: current Alcohol intake frequency: holidays/special occasions only Patient Tobacco Use Status: Former Tobacco user Current occupational status: employed 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 Sexual orientation: Straight/Heterosexual Gender identity: Female Female Reproductive History Menstrual Age of Menarche: 12 Review of Systems Const Denies weight gain and Denies weight loss ENT Reports no additional complaints, Denies dysphagia and Denies odynophagia Card Reports no additional complaints Resp Reports no additional complaints GI Denies abdominal pain, Denies belching, Denies melena, Denies bloating, Denies change in bowel habits, Denies dysphagia, Denies excessive flatus, Denies dyspepsia, Denies heartburn, Denies diarrhea, Denies loose stools, Denies nausea, Denies odynophagia and Denies vomiting Musc Reports no additional complaints Neuro Reports no additional complaints Psych Reports no additional complaints Endo Reports no additional complaints Physical Exam Vital Signs: Last Vital Signs Pulse 75 09/13/23 14:07 BP 117/63 09/13/23 14:07 BMI result Body Mass Index 30.1 Assessment & Plan Assessment & Plan (1) Screen for colon cancer: Code(s): Z12.11 - Encounter for screening for malignant neoplasm of colon Plan Patient denies any GI, cardiac or respiratory symptoms.? Denies any issues with anesthesia in the past.? Denies any history of sleep apnea.? No history infectious diseases in the past or present.? Not on any anticoagulation therapy.? No family or personal history of colon cancer or polyps.? As mentioned above in HPI patient's sister has been having trouble after her colonoscopy and has been seeking provider's. Unsure if she had polyps or what kind they were, patient states that she will find out from her sister. As of now no known family history of colon polyps or CRC. Patient denies melena, hematochezia, unintentional weight loss or ribbon like stools.? Discussed at length the pre- procedure,? prep, diet & medications as well as what to expect prior, during and after the procedure.?? Stressed the importance of good bowel prep.? Recommended the use of Vaseline or Calmoseptine OTC & baby wipes with bowel movements to promote comfort.? ?Patient verbalizes understanding and agrees to plan of care.? She was given the opportunity to ask questions and all questions answered.? We will see her after the procedure.? Medications: New bisacodyl (Dulcolax (bisacodyl)) take 4 tabs at noon the day before your colonoscopy 20 mg (4 x 5 mg) PO ONCE 1 day 4 tabs 0RF Z12.11 - Encounter for screening for malignant neoplasm of colon polyethylene glycol 3350 (Miralax) As directed by gastro[facility]ology department at [facility] 238 grams PO ONCE 238 grams 0RF Z12.11 - Encounter for screening for malignant neoplasm of colon Coding Level of Care Code New Pt Level 3 (64423) Diagnoses Screen for colon cancer Z12.11 Time Spent (min) 40 Comment 30 minutes spent with patient and additional 10 minutes spent reviewing her records
== END 2023-09-13 15:24 | disposition home or self-care (01) ==
PROVIDERS: PCP Internal Medicine; Visit Provider Nurse Practitioner Family
DX: Z12.11 Encounter for screening for malignant neoplasm of colon (principal); Z01.818 Encounter for other preprocedural examination
CPT/HCPCS: 99203

== ENCOUNTER → 2023-09-13 14:02 | Outpatient (BNVA) | payer OTHER, SELFPAY | PROVIDERS: PCP Internal Medicine; Visit Provider Nurse Practitioner Family | DX: Z01.818 Encounter for other preprocedural examination (principal) | CPT/HCPCS: 99202 ==

== ENCOUNTER 2024-01-02 08:59 | Outpatient (REF) | payer BC, SELFPAY ==
--- NOTE | ~2024-01-02 | MM_ITS ---
EXAMINATION: MM SCREENING DIGITAL BREAST TOMOSYNTHESIS, BILATERAL CLINICAL INFORMATION: Screening. Asymptomatic. History of right breast cancer post lumpectomy. COMPARISON: Mammography: Comparison is made with available priors TECHNIQUE: Digital breast tomosynthesis is performed in both the craniocaudal and mediolateral oblique views along with computer-aided detection (CAD). Synthesized 2D images are generated from the tomosynthesis. FINDINGS: The breasts are heterogeneously dense, which may obscure small masses (ACR BI-RADS breast composition Category c). Right: Post right lumpectomy changes are stable. There are no significant masses, abnormal calcifications, or other abnormalities. Left: Focal asymmetry upper central to slightly inner breast middle depth with associated architectural distortion. Focal asymmetry upper inner breast posterior depth. Suspicious calcifications or other abnormal findings. MM/MM tomosynthesis screening BI IMPRESSION: Right: No mammographic evidence of malignancy. Left: Focal asymmetries. Additional imaging and ultrasound are recommended at this time. ASSESSMENT: BI-RADS BI-RADS 0 - Incomplete: Needs additional Imaging. RECOMMENDATION: 1. Additional views of the left breast 2. Targeted ultrasound if warranted after review of the additional views. 3. Radiology department staff will contact the patient for additional imaging. Additional Imaging required This examination should not preclude the clinical evaluation of a suspicious palpable abnormality. This patient's information was entered into a reminder system with a target due date for their next mammogram. Electronically signed by: Vonnie Maya DO 01/24/2024 09:01 PM [email or web address]
== END 2024-01-02 09:00 | disposition home or self-care (01) ==
LOC: HO.MAMMO 08:59
PROVIDERS: PCP Internal Medicine; Visit Provider Internal Medicine
DX: Z12.31 Encounter for screening mammogram for malignant neoplasm of breast (principal)
CPT/HCPCS: 77063; 77067

== ENCOUNTER → 2024-01-02 09:00 | Outpatient (BNV) | payer BC, SELFPAY | PROVIDERS: PCP Internal Medicine; Visit Provider Internal Medicine | DX: Z12.31 Encounter for screening mammogram for malignant neoplasm of breast (principal) | CPT/HCPCS: 77063; 77067 ==

== ENCOUNTER 2024-01-02 14:54 | Outpatient (AMB) | payer BC, SELFPAY ==
[2024-01-02 14:54] VITALS: BP 114/72; PULSE 73
--- NOTE | 2024-01-02 14:54 | A.OFFVIS_ITS ---
Vital Signs 01/02/24 14:54 Height 5 ft 5 in Weight 180 lb BMI 30.0 BP 114/72 Blood Pressure Location Rt brachial Position Sitting Pulse 73 Intake Visit Reasons: Breast exam, 6 mo follow up Intake Note: This patient presents for Breast exam, 6 mo follow up. Pt c/o; reports no breast complaints. 06/19/2023-Breast MRI 12/27/2022- MM Screening Multimedia Instructional Designer Required: No Accompanied by: Self / Same As Patient Allergies No Known Allergies Allergy (Verified 01/02/24 14:55) HPI HPI Breast exam, 6 mo follow up: Details: She is here for follow-up for a personal history of breast cancer. She was diagnosed to have right breast cancer in 2010 while she lived in [place]. She said she had a lumpectomy at that time. She stated that she did not go for radiation of the breast as she was told that this was very early stage cancer. She says she was on tamoxifen for 5 years. She had moved to the area and has been here for several years. She has been undergoing yearly mammograms Review of her records however show that she had a genetic testing done in [facility] and she tested positive for a CHEK2 mutation. She was therefore referred to us by her division order technician. Her menarche was at the age of 12. She had her 1st at age of 17. She had 3 pregnancies. She says she seems to be undergoing menopause at this time. Her mother was diagnosed to have breast cancer in her late 40s. Her sister was diagnosed to have cancer in her late 60s. She denies any palpable breast masses or any nipple or skin change. I had seen her in the office in June,. She had been doing well at that time. She had an MRI done at that time for both breasts and this was read as BI-RADS 2 for the left and BI-RADS 3 for the right She had a repeat mammogram. This has not been read by the radiologist yet. She denies any palpable breast masses. 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 Sexual orientation: Straight/Heterosexual Gender identity: Female Female Reproductive History Menstrual Age of Menarche: 12 Review of Systems Const Denies chills and Denies fever(s) Card Denies chest pain, Denies dyspnea and Denies dyspnea on exertion Resp Denies cough, Denies dyspnea and Denies dyspnea on exertion GI Denies hematochezia and Denies change in bowel habits Denies hematuria Musc Denies back pain and Denies limited range of motion Neuro Denies focal weakness and Denies convulsions Psych Denies depression and Denies mood swings Physical Exam Vital Signs: Last Vital Signs Pulse 73 01/02/24 14:54 BP 114/72 01/02/24 14:54 BMI result Body Mass Index 30.0 Const General: comfortable and no acute distress Orientation/consciousness: patient oriented x3 Neck Neck: Yes no lymphadenopathy Chest Other: Breast exam shows no palpable breast masses, no nipple or skin changes, no axillary lymphadenopathy Resp Auscultation: clear to auscultation bilaterally Cardio Rhythm: regular rhythm GI Palpation (GI): Soft to palpation, nontender and no guarding Neuro General: patient oriented x3 Assessment & Plan Assessment & Plan (1) History of breast cancer: Code(s): Z85.3 - Personal history of malignant neoplasm of breast Category: Medical Plan: She had a CHEK2 mutation. She undergoes closed monitoring with surveillance mammogram as well as MRI. Her last MRI in June 2023 showed benign findings on the left breast and probably benign findings on the right breast She just had a mammogram today which has not been officially read. Physical exam is unremarkable. There is no suggestion of any masses on the breast. No axillary lymphadenopathy. I will follow up on the official report for the mammogram. I also reminded her that she should have an MRI again in June,. She seems to understand the plan well. Coding Level of Care Code Est Pt Level 3 (13821) Diagnoses History of breast cancer Z85.3
== END 2024-01-02 15:10 | disposition home or self-care (01) ==
PROVIDERS: PCP Internal Medicine; Visit Provider Surgery
DX: Z85.3 Personal history of malignant neoplasm of breast (principal)
CPT/HCPCS: 99213

== ENCOUNTER 2024-03-06 07:59 | Day surgery (SDC) | payer BC, SELFPAY ==
[2024-03-04 11:25] VITALS: BMI 30.1
[2024-03-06 08:18] VITALS: BP 122/83; PULSE 72; RESP 18; TEMP 37.1; O2SAT 98; BMI 28.5
--- NOTE | 2024-03-06 08:22 | MHC.SHP ---
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 Pruritus Fibroids PMB (postmenopausal bleeding) Gene mutation History of breast cancer) History of Previous Operations: Relevant previous surgery/procedure and date(s) (Hx of colonoscopy History of lumpectomy of right breast History of back surgery History of appendectomy Hx of tubal ligation) Allergies: Allergies Allergy/AdvReac Type Severity Reaction Status Date / Time No Known Allergies Allergy Verified 01/02/24 14:55 Review of Systems Sugical H&P ROS: Negative: Constitution, Cardiovascular, Respiratory and Gastrointestinal Exam Surgical H&P Exam: Normal: Heart, Normal: Lungs, Normal: Extremities and Normal: Abdomen Plan Diagnosis/Plan: Unchanged I have reviewed the history and physical and performed a pertinent physical examination on my patient. No changes have occurred unless specified. Time Spent With Patient Time: Total time managing care of this patient today ____ minutes.
--- NOTE | 2024-03-06 08:27 | HO.ANESPROP2 ---
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 Pruritus Fibroids PMB (postmenopausal bleeding) Gene mutation History of breast cancer Family History Family History Mother History of breast cancer Sister History of breast cancer Family history of problems with anesthesia: No Surgical History Surgical History Hx of colonoscopy History of lumpectomy of right breast History of back surgery History of appendectomy Hx of tubal ligation History of Problems with Anesthesia: No Social History Social History Alcohol intake: current Alcohol intake frequency: does not drink Patient Tobacco Use Status: Former Tobacco user Have you been hit, kicked, punched, or otherwise hurt by someone within the past year? 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 Sexual orientation: Straight/Heterosexual Gender identity: Female Meds Allergies Allergy/AdvReac Type Severity Reaction Status Date / Time No Known Allergies Allergy Verified 01/02/24 14:55 Active Medications: Current Medications Lactated Ringer's (Lr) 1,000 mls @ 50 mls/hr IVCONT .Q20H PRATIMA Home Medications ?Medication ?Instructions ?Recorded ?Confirmed ?Last Taken ?Type medroxyprogesterone 10 mg tablet 10 mg PO DAILY 07/01/23 03/04/24 Unknown History clobetasol 0.05 % topical ointment 1 appl topical BID 09/13/23 03/04/24 Unknown History gabapentin 100 mg capsule 100 mg PO DAILY 03/04/24 03/04/24 03/06/24 History Exam Height,Weight and Vital Signs: Height 5 ft 5 in Weight 77.655 kg Last Vital Signs Temp 98.8 F 03/06/24 08:18 Pulse 72 03/06/24 08:18 Resp 18 03/06/24 08:18 BP 122/83 03/06/24 08:18 Pulse Ox 98 03/06/24 08:18 O2 Del Method Room Air 03/06/24 08:18 Airway Mallampati Class: II (caps top front) TM Dist: >3cm Neck ROM: Full Heart: rrr Lungs: cta Assessment and Plan Assessment Anesthesia Assessment: Anesthesia Plan Discussed and Chart Reviewed Final Anesthetic Review Family History of Problems with Anesthesia: No History of Problems with Anesthesia: No NPO: Yes ASA Class: II Final Preanesthetic Review: No Changes in Pt Med Stat, Meds/Allgs Chart Reviewed and Consent Obtained/Reviewed Patient Risk: Low Procedure Risk: Low Anesthetic Plan Anesthetic Plan: MAC: Disposition: Standard PACU
[2024-03-06] MEDS: Lactated Ringers 1,000 ML 50 ML IVCONT (08:36)
[2024-03-06 09:40] VITALS: BP 114/66; PULSE 83; RESP 16; TEMP 36.1; O2SAT 96
--- NOTE | 2024-03-06 09:42 | P.OPN-COLO_ITS ---
Colonoscopy Operative Note Operative Note Date of Service: 03/06/24 Narrative: COLONOSCOPY TILL CECUM WITH BIOPSIES AND SNARE POLYPECTOMY Pre-op diagnosis: Surveillance for colon polyps. Post-op diagnosis:? Colon polyps, Diverticulosis, hemorrhoids Endoscopist:? Clemente Lauren MD Anesthesia:?MAC Consent: Indications for the procedure and potential complications of bleeding, perforation, reaction to medications and missed diagnosis were discussed with the patient and informed consent was obtained. Instrument: Olympus PCF H 190 L variable stiffness pediatric colonoscope Monitoring: Vital signs and clinical assessment, intermittent blood pressure monitoring, continuous EKG monitoring, Pulse oximetry and Carbon Dioxide monitoring were done throughout the procedure. Please see anesthesia flowsheet. Colon withdrawl time was 21 minutes. Procedure: The patient was placed in the left lateral decubitis position and pre-procedure medications were administered. After a digital rectal examination of the ano-rectum, the video colonoscope was inserted into the rectum and advanced through the colon to the cecum. The colonoscope was slowly withdrawn in a retrograde panoramic fashion and the colon mucosa was carefully examined including a retroflexed view of the rectum. Findings and interventions are described below. Procedure Difficulty: without difficulty - there was some spasm in the colon Findings: Terminal Ileum: Not evaluated Cecum: Normal Ascending Colon: Normal Transverse Colon: A 7-8 mm sessile polyp - removed with a cold snare. A 3-4 mm sessile polyp - removed with a cold biopsy. Moderate diverticulosis Descending Colon: Moderate diverticulosis Sigmoid Colon: A 12-15 mm sessile polyp - removed with a hot snare. Severe diverticulosis with luminal narrowing Rectum: Normal Ano-rectum: Moderate internal hemorrhoids Colon preparation: Good after some irrigation. [place] Bowel Preparation Scale Right colon; 2 Transverse colon: 2 Left colon; 2 (0 = Unprepared colon segment with mucosa not seen due to solid stool that cannot be cleared. 1 = Portion of mucosa of the colon segment seen, but other areas of the colon segment not well seen due to staining, residual stool and/or opaque liquid. 2 = Minor amount of residual staining, small fragments of stool and/or opaque li quid, but mucosa of colon segment seen well. 3 = Entire mucosa of colon segment seen well with no residual staining, small fragments of stool or opaque liquid) Impression and Post Procedure Diagnosis: Colonoscopy Findings: Three small to medium sized polyps were removed Moderate diverticulosis seen in the left and transverse colon Moderate hemorrhoids on retroflexed exam. Plan: Pt has a FU appointment on 03/23/24 with Tatiana John NP Repeat Colonoscopy in 3-5 years if polyps are adenomatous and 10 year if polyps are hyperplastic. Above findings were reviewed with the patient and relevant handouts were given and the discharge area.
[2024-03-06 09:55] VITALS: BP 124/80; PULSE 83; RESP 16; TEMP 36.1; O2SAT 99
== END 2024-03-06 10:18 | disposition home or self-care (01) ==
PROVIDERS: PCP Internal Medicine; Visit Provider Internal Medicine Gastroenterology
PROC: 0DJD8ZZ Inspection of Lower Intestinal Tract, Via Natural or Artificial Opening Endoscopic (ICD-10-PCS; CPT 45378; principal; 2024-03-06 09:20)
DX: Z12.11 Encounter for screening for malignant neoplasm of colon (principal); D12.3 Benign neoplasm of transverse colon; K57.30 Diverticulosis of large intestine without perforation or abscess without bleeding; K64.8 Other hemorrhoids; K56.699 Other intestinal obstruction unspecified as to partial versus complete obstruction; Z85.3 Personal history of malignant neoplasm of breast; Z87.891 Personal history of nicotine dependence
CPT/HCPCS: 45385; 45380; 88305; J2003; J2704

== ENCOUNTER → 2024-03-06 07:59 | Outpatient (BNV) | payer BC, SELFPAY | PROVIDERS: PCP Internal Medicine; Visit Provider Internal Medicine Gastroenterology | DX: Z12.11 Encounter for screening for malignant neoplasm of colon (principal); Z86.0100 Personal history of colon polyps, unspecified; D12.3 Benign neoplasm of transverse colon; K63.5 Polyp of colon; K57.90 Diverticulosis of intestine, part unspecified, without perforation or abscess without bleeding; K64.8 Other hemorrhoids | CPT/HCPCS: 45380; 45385 ==

== ENCOUNTER 2024-03-10 14:43 | Outpatient (REF) | payer BC, SELFPAY ==
--- NOTE | ~2024-03-10 | MM_ITS ---
EXAMINATION: MM DIAGNOSTIC DIGITAL BREAST TOMOSYNTHESIS, LEFT US BREAST LIMITED, LEFT MAMMOGRAPHY: CLINICAL INFORMATION: -Diagnostic exam; follow-up focal asymmetry upper central to slightly inner breast middle depth, with possible associated architectural distortion; follow-up focal asymmetry upper inner breast posterior depth. -Patient has history of right breast cancer status post conservation therapy/lumpectomy in 2010. Patient has history of benign lipoma excision right breast 2012. Strong family history of breast cancer. -Patient was recommended for a six-month interval follow-up MRI of the breasts from results 06/19/2023. No follow-up MRI at this institution. COMPARISON: Mammography: Screening 01/02/2024, and exams dating back to 2019. MRI: Bilateral 06/19/2023. TECHNIQUE: Digital breast tomosynthesis is performed in the following views: 3-D spot compression left CC view x2, and left MLO view x2. Computer-aided diagnosis was used for this study. This is followed. By targeted left breast ultrasound. FINDINGS: The breasts are heterogeneously dense, which may obscure small masses (ACR BI-RADS breast composition Category c). The focal asymmetries in the approximate 10:00 position of the left breast mid to posterior depth, are entirely unchanged from mammography dated back to 2019. This strongly suggests benign entities. They essentially efface on spot compression views, findings highly suggestive of superimposition artifact of normal overlapping breast tissues. This will be evaluated with targeted left breast ultrasound. No other suspicious findings. ULTRASOUND: CLINICAL INFORMATION: As above. COMPARISON: None relevant. TECHNIQUE: Targeted sonographic evaluation was performed using a high frequency linear transducer. Attention was given to the left breast upper inner quadrant to include the areas of mammographic concern. Selected archived documentation. FINDINGS: LEFT BREAST: There is a mixture of fatty and fibroglandular tissue. No suspicious mass is seen. There is no pathologic acoustic shadowing. There is no cystic abnormality. There is no ultrasound correlate to the asymmetries in the 10:00 axis mid and posterior depth. MM/MM tomosynthesis added views L IMPRESSION: -There are no findings suspicious for malignancy in the left breast. -Appearance of the 10:00 mid and posterior left breast asymmetries is unchanged completely when compared with exams dating back to 2019. No ultrasound correlate is present. Findings are consistent with patient's normal overlapping fibroglandular tissue. -Recommend the patient resume routine annual screening mammography. -In addition, recommend MRI follow-up in accordance with the recommendations on the breast MRI 06/19/2023. OVERALL ASSESSMENT: Mammography: BI-RADS 2 - Benign Findings Ultrasound: BI-RADS 2 - Benign Findings RECOMMENDATION: 1 year F/U This patient's information was entered into a reminder system with a target due date for their next mammogram. Electronically signed by: Sudeep Howard MD 03/10/2024 04:03 PM BRISEIDA AKHTAR
== END 2024-03-10 14:44 | disposition home or self-care (01) ==
LOC: HO.MAMMO 14:43
PROVIDERS: PCP Internal Medicine; Visit Provider Internal Medicine
DX: N64.89 Other specified disorders of breast (principal); Z85.3 Personal history of malignant neoplasm of breast; Z98.890 Other specified postprocedural states
CPT/HCPCS: 76642; 77061; 77065

== ENCOUNTER → 2024-03-10 15:00 | Outpatient (BNV) | payer BC, SELFPAY | PROVIDERS: PCP Internal Medicine; Visit Provider Radiology Diagnostic Radiology | DX: R92.8 Other abnormal and inconclusive findings on diagnostic imaging of breast (principal) | CPT/HCPCS: 76642; 77061; 77065 ==

== ENCOUNTER → 2024-06-23 15:46 | Outpatient (BNV) | payer BC, SELFPAY | PROVIDERS: PCP Internal Medicine; Visit Provider Internal Medicine | DX: Z85.3 Personal history of malignant neoplasm of breast (principal); Z80.3 Family history of malignant neoplasm of breast; K76.9 Liver disease, unspecified | CPT/HCPCS: 77049 ==

== ENCOUNTER 2024-06-23 15:49 | Outpatient (REF) | payer BC, SELFPAY ==
--- NOTE | ~2024-06-23 | MR_ITS ---
EXAMINATION: MR BREAST WITHOUT AND WITH CONTRAST, BILATERAL CLINICAL INFORMATION: History of right breast cancer in 2011 status post lumpectomy and conservation therapy. History of right excision for lipoma in 2013. Strong family history of breast cancer including mother and sister in their 40s. Patient describes right shoulder pain. Patient denies history of right-sided port placement. Patient denies history of surgical intervention in this right lateral anterior superior chest wall area. COMPARISON: Comparison is made with available imaging including mammogram and ultrasound March 2024 mammography December 2023 breast MRI June 19, 2023 May 23, 2010. TECHNIQUE: MR imaging of the breast was performed using T1, T2 and fat saturated techniques. Dynamic multiphase imaging was also performed after the administration of intravenous gadolinium contrast agent. Computer generated 3-D reconstruction was performed. FINDINGS: There is heterogeneous fibroglandular breast tissue with marked background enhancement with bilateral scattered enhancing foci. LEFT BREAST: No suspicious enhancing mass or areas of nonmass enhancement. No architectural distortion. No internal mammary or axillary adenopathy. Areas of scattered enhancing foci likely represent background enhancement are not significantly changed from prior and for which follow-up MRI in one year is recommended for further evaluation of stability. RIGHT BREAST: No suspicious enhancing masses or areas of nonmass enhancement. Postsurgical changes. No internal mammary or axillary adenopathy. Areas of scattered enhancing foci likely represent background enhancement and are not significantly changed from prior and for which follow-up MRI is recommended in one year for further evaluation of stability. There is no suspicious internal mammary chain or axillary adenopathy. Other: There is a heterogeneous incompletely evaluated mass/fluid collection in the upper outer anterior lateral right chest wall just anterior to the humeral head and medial to the pectoralis muscle which within the limited images measures approximately 5.5 x 3.8 cm which demonstrates peripheral enhancement series 2 and 4 images 1-13, series 1042 and series 10 images 126-101. This was not seen on prior MRI dated June 19, 2023 however imaging may not have been performed to this superior extent on the prior. 9 mm oval lesion in the liver series 10 image 40/126 which is stable in size from prior MRI June 2023 enhancement of the liver is suboptimal on this breast MRI therefore further evaluation if clinically concerned could be considered. Otherwise limited views of the rest of the visualized chest and abdomen are unremarkable. MR/MR breast BI wo/w con IMPRESSION: 1. Upper outer heterogeneous superior, anterior lateral right chest wall mass/fluid collection incompletely evaluated on these limited breast MRI images. Recommend cross-sectional imaging with contrast or other imaging modality to include the right shoulder and anterior lateral chest wall and lower neck for further evaluation and delineation of this mass to characterize the lesion assesses the extent and determine the best course of action. Patient has a history of right breast cancer in 2010 and current symptoms of right shoulder pain. This was not seen on prior MRI June 2023 however imaging on prior may not have been to this far superior extent. 2. 9 mm oval liver lesion stable in size from MRI June 2023 enhancement is suboptimal on this breast MRI for further evaluation if clinically concerned should be considered to characterize. 3. Bilateral areas of scattered enhancing foci throughout the breasts probably represent background enhancement. Recommend one-year follow-up breast MRI for further evaluation of stability. ASSESSMENT: LEFT BREAST: BI-RADS 3 probably benign. Recommend follow-up breast MRI in one year for further evaluation of stability of previously noted enhancing areas. RIGHT BREAST: BI-RADS 3 probably benign. Recommend follow-up breast MRI in one year for further evaluation of stability of previously noted enhancing areas. Right anterior lateral superior chest wall heterogeneous mass/fluid collection lesion for which additional imaging is recommended. Right lobe liver lesion for which further evaluation could be considered if clinically indicated for definitive characterization, this has been stable in size for one year. RECOMMENDATIONS: Recommend further evaluation of right superior anterior lateral chest wall mass/fluid collection with cross-sectional imaging and/or other imaging modality. These findings and recommendations were communicated to Dr. Alcocer on 06/24/2024 at 12:45 pM and communicated to the patient 06/24/2024 1:20 PM. The patient will follow-up with Dr. Alcocer on Saturday, June 29, 2024 Recommend further evaluation of right liver lesion for definite characterization if clinically indicated. Recommend 1 year follow-up breast MRI for further evaluation of stability bilateral scattered enhancing foci. Electronically signed by: Vonnie Maya DO 06/24/2024 01:29 PM BRISEIDA
--- OUTSIDE RECORDS SUMMARY | 2024-06-23 16:33 | XMS_ITS | Encounter Summary ---
Author Organization [facility] Address [address] [place] [address] [address] [address] Care Team Providers Care Slabber Name Role Phone PcpWendy Unassigned Primary Care Provider U navailable Encounter Details Date Type Department Care Team (Latest Contact Info) Description 04/12/2021 Abstract [facility] CONVERSIONS Dental, Provider, DDS Social History Tobacco Use Types Packs/Day Years Used Date Smoking Tobacco: Never Assessed Comments Unknown Sex and Gender Information Value Date Recorded Sex Assigned at Female 07/04/2022 8:19 AM EST Legal Sex Female 10:58 PM EDT Gender Identity Female 07/04/2022 8:19 AM EST Sexual Orientation Choose not to disclose 2022 8:19 AM EST documented as of this encounter Plan of Treatment Upcoming Encounters Date Type Department Care Team (Late st Contact Info) Description 05/12/2025 3:00 PM EST Office Visit Wendy [facility] [address] [place] [id number] Viviana Rachel documented as of this encounter Visit Diagnoses Not on filedocumented in this encounter Care Teams Slabber Relationship Specialty Start Date End Date Wendy Valadezssgeorgina PCP - General Family Medicine 09/03/22 documented as of this encounter
--- OUTSIDE RECORDS SUMMARY | 2024-06-23 16:33 | XMS_ITS | Clinical Summary ---
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 Family history of malignant neoplasm of breast 0 05/12/2016 Family History Medical History Relation Name Comments Breast cancer Mother at 50 Breast cancer Sister Relation Name Status Comments Mother Sister Alive Social History Tobacco Use Types Packs/Day Years Used Date Smoking Tobacco: Former Smokeless Tobacco: Never Alcohol Use Standard Drinks/Week Comments Yes 0 (1 standard drink = 0.6 oz pur e alcohol) AUDIT-C Answer Date Recorded Frequency of Alcohol Consumption 2-4 times a sat05/28/2018 Average Number of Drinks Not on file 019 Frequency of Binge Drinking Not on file 05/07 Sex and Gender Information Value Date Recorded Sex Assigned at Not on file Gender Identity Not on file Sexual Orientation Not on file Last Filed Vital Signs Vital Sign Reading Time Taken Comments Blood Pressure 108/71 05/28/2018 10:42 AM EST Pulse 63 05/28/2018 10:42 AM EST Temperature 36.8 ??C (98.3 ??F) 05/22/2017 10:[address] Respiratory Rate - - Oxygen Saturation - - Inhaled Oxygen Concentration - - Weight 79.4 kg (175 lb) 05/28/2018 10:42 AM EST Height 162.6 cm (5' 4 ) 05/28/2018 10:42 AM EST Body Mass Index 30.04 05/28/2018 10:42 AM EST Plan of Treatment Health Maintenance Due Date Last Done Comments Hepatitis C Virus Screening 1965 HIV Screening 01/18/1977 DTaP/Tdap/Td Vaccines (1 - Tdap) 01/18/1983 Pap Smear (Ages 21-65) 01/18/1985 Colonoscopy 01/18/2009 Pneumococcal Vaccines 50+ (1 of 1 - PCV) 01/18/2014 Zoster (Shingles) Vaccine (1 of 2) 01/18/2014 Mammogram 05/28/2020 05/28/2018, 05/06, 04/19/2016, Additional history exists Influenza Vaccine 12/05/2023 COVID-19 Vaccine ( - season) 2024 RSV Vaccine 60 years and older and Patients (1 - 1-dose 75+ series) 01/18/2039 Hepatitis B Vaccines Aged Out No long er eligible based on patient's age to complete this topic Pneumococcal Vaccine: Pediatric (0-5 Years) and At-Risk Patients (6 to 49 Years) Aged Out No longer eligible based on patient's age to complete this topic Procedures Procedure Name Priority Date/Time Associated Diagnosis Comments MM MAMMO SCREENING W/ TOMOSYNTHESIS BILATERAL Routine 05/28/2018 9:47 AM EST Dense breast Personal history of breast cancer Family history of malignant neoplasm of breast from Last 3 Months or Most Recently Relevant to Health Maintenance Results * MM Breast tomosynthesis screening-Bilateral (05/28/2018 9:47 AM EST) Anatomical Region Laterality Modality Breast Bilateral Mammography 05/28/2018 10:0 0 AM EST Impressions 05/28/2018 10:00 AM EST 1. No mammographic evidence of malignancy. ?? 2. Dense breasts. ??Consider screening sonography. ?? In the absence of clinical findings, next routine screening mammography would be recommended in one year. ?? BI-RADS 2: BENIGN. ?? d Narrative 05/28/2018 10:00 AM EST MM MAMMO SCREENING W/ TOMOSYNTHESIS BILATERAL: 05/28/2018 9:17 AM TECHNIQUE: Digital views were obtained. The examination is performed in the mediolateral oblique and craniocaudal projections using digital breast Tomosynthesis. Computer aided detection performed. ?? CLINICAL HISTORY: Screening. Dense breast, Personal history of breast cancer, Family history of malignant neoplasm of breast COMPARISON: 04/19/2015 and 05/22/2017. FINDINGS: The mammary parenchyma is heterogeneously dense, which may obscure detection of small masses. No suspicious mass, suspicious architectural distortion, or suspicious calcium. ??Benign findings. Denise Kee APRN IMG MAMMOGRAP HY ORDERABLES from Last 3 Months or Most Recently Relevant to Health Maintenance Care Teams Superintendent Container Terminal Relationship Specialty Start Date End Date Srinivasan Tirado MD PCP - General 09/28/14 Dimitri Yousif MD [address] [address] Referring Provider 05/22/17
--- OUTSIDE RECORDS SUMMARY | 2024-06-23 16:33 | XMS_ITS | Encounter Summary ---
Author Organization [facility] Address [address] [place] [address] Care Team Providers Care Manager Supply Chain Name Role Phone Srinivasan Tirado MD Primary Care Provider [phone] Dimitri Yousif MD Unavailable [phone] Encounter Details Date Type Department Care Team (Late st Contact Info) Description 04/19/2016 Scanned Document [address] [place] [phone] Provider, Generic Social History Tobacco Use Types Packs/Day Years Used Date Smoking Tobacco: Former Alcohol Use Standard Drinks/Week Comments Yes 0 (1 standard drink = 0.6 oz pur e alcohol) Sex and Gender Information Value Date Recorded Sex Assigned at Not on file Gender Identity Not on file Sexual Orientation Not on file documented as of this encounter Plan of Treatment Not on file documented as of this encounter Procedures Procedure Name Priority Date/Time Associated Diagnosis Comments IMAGING BREAST/BX/MAMMO 04/19/2016 documented in this encounter Results * IMAGING BREAST/BX/MAMMO (04/19/2016) Anatomical Region Laterality Modality Other Narrative 05/29/2016 6:33 AM EST Ordered by an unspecified provider. Generic Provider IMG LEGACY PROCEDURE S documented in this encounter Visit Diagnoses Not on filedocumented in this encounter Care Teams Manager Supply Chain Relationship Specialty Start Date End Date Srinivasan Tirado MD PCP - General 09/28/14 Dimitri Yousif MD [address] [address] Referring Provider 05/22/17 documented as of this encounter
--- OUTSIDE RECORDS SUMMARY | 2024-06-23 16:33 | XMS_ITS | Encounter Summary ---
Author Organization [employer] [facility] Address [address] [place] [address] Care Team Providers Care Clinical Lab Technologist Name Role Phone PcpWendy Unassigned Primary Care Provider U navailable Encounter Details Date Type Department Care Team (Latest Contact Info) Description 05/02/2020 Abstract [facility] CONVERSIONS Dental, Provider, DDS Social [...] 05/12/2025 3:00 PM EST Office Visit Wendy [facility] [address] [place] [address] Viviana Rachel documented as of this encounter Visit Diagnoses Not on filedocumented in this encounter Care Teams Clinical Lab Technologist Relationship Specialty Start Date End Date Wendy Valadez Unassgeorgina PCP - General Family Medicine 09/03/22 documented as of this encounter
--- OUTSIDE RECORDS SUMMARY | 2024-06-23 16:33 | XMS_ITS | Clinical Summary ---
Author Organization [facility] Address [address] [place] [address] Care Team Providers Care Stationary Steam Engineer Name Role Phone Srinivasan Tirado MD Primary Care Provider [phone] Allergies Active Allergy Reactions Criticality Noted Date Comments Seasonal Rash High 09/07/2015 Rash on her face Medications No known medications Active Problems No known active problems Immunizations Name Administration Dates Next Due Influenza Quad (Flucelvax) 0.5mL >6mon Vial (ccI IV4) 02/04/2019 Tdap 05/09/2012,02/14/2007 Family History Medical History Relation Name Comments Heart disease Father Cancer Mother breast Cancer Sister breast Relation Name Status Comments Father Mother breast Sister breast Alive Social History Tobacco Use Types Packs/Day Years Used Date Smoking Tobacco: Former Cigarettes 1 25 Q uit: 01/14/2010 Smokeless Tobacco: Never Alcohol Use Standard Drinks/Week Comments Yes 0 (1 standard drink = 0.6 oz pur e alcohol) Sex and Gender Information Value Date Recorded Sex Assigned at Not on file Gender Identity Not on file Sexual Orientation Not on file Last Filed Vital Signs Vital Sign Reading Time Taken Comments Blood Pressure 122/80 02/04/2019 11:13 AM EDT Pulse 70 10/01/2018 9:37 AM EDT Temperature 36.2 ??C (97.1 ??F) 12/26/2015 2:55 PM ED T Respiratory Rate 18 08/13/2014 1:40 PM EDT Oxygen Saturation 99% 10/01/2018 9:37 AM EDT Inhaled Oxygen Concentration - - Weight 79.4 kg (175 lb) 02/04/2019 11:13 AM EDT Height 162.6 cm (5' 4 ) 02/04/2019 11:13 AM EDT Body Mass Index 30.04 02/04/2019 11:13 AM EDT Plan of Treatment Health Maintenance Due Date Last Done Comments Hepatitis C Screening 1965 COVID-19 Vaccine (#1) 1965 BMI Counseling 01/18/1982 Cervical Cancer Screening (Pap Smear) 04/18/2019 04/18/2016, 09/07/2015 (Declined) Breast Cancer Screening (Mammogram) 05/13/2019 05/13/2017, 10/12/2015, 04/08/2015, Additional history exists Depression Screening 10/02/2019 10/01/2018, 09/26/2017, 09/12/2016, Additional history exists Preventative Health Evaluation 10/02/2019 10/01/2018, 09/26/2017, 09/12/2016, Additional history exists DTap / Tdap / Td (3 - Td or Tdap) 05/09/2022 05/09/2012, 02/14/2007 Influenza Vaccine (#1) 2024 02/04/2019 Colon Cancer Screening (Colonoscopy) 09/06/2024 09/06/2014, 09/06/2014 RSV Adult > 60+ Yrs or (1 - 1-dose 75+ series) 01/18/2039 Shingrix-Zoster Vaccine Addressed 02/05/20 19, 10/01/2018 (Not Specified) Overridden with the intention of not completing the topic Hepatitis B Vaccines Aged Out No long er eligible based on patient's age to complete this topic Pneumococcal Vaccine Aged Out No long er eligible based on patient's age to complete this topic RSV Ped < 20 months Aged Out No longe r eligible based on patient's age to complete this topic Advance Directives For more information, please contact: [phone] Documents on File Type Date Recorded Patient Certified Health Education Specialist Expl anation Advance Directive and Living Will 01/14/2015 2:49 PM Care Teams Stationary Steam Engineer Relationship Specialty Start Date End Date Srinivasan Tirado MD PCP - General Internal Medicine 02/08/14
--- OUTSIDE RECORDS SUMMARY | 2024-06-23 16:33 | XMS_ITS | Clinical Summary ---
Author Organization [facility] Address [address] [place] [address] Care Team Providers Care Lock Plater Name Role Phone Srinivasan Tirado MD Primary Care Provider [phone] Surgical History Surgery Date Site/Laterality Comments APPENDECTOMY 2011 PROCEDURE:APPENDECTOMY BREAST LUMPECTOMY 2013 Right PROCEDURE:BREAST LUMPECTOMY TUBAL LIGATION 1993 PROCEDURE:TUBAL LIGATION Medical History Medical History Date Comments Cancer (CMS/HCC) DX:Cancer (HCC) ;COMMENT:breast cancer Varicella DX:Varicella;COM MENT:as a child Visual impairment DX:Visual impa irment Family History Medical History Relation Name Comments Heart disease Father Cancer Mother breast Cancer Sister 1 breast Relation Name Status Comments Father Mother breast Sister 1 breast Sister 2 breast Alive Social History Tobacco Use Types Packs/Day Years Used Date Smoking Tobacco: Former Cigarettes Q uit: 01/14/2010 Smokeless Tobacco: Never Alcohol Use Standard Drinks/Week Comments Yes 0 (1 standard drink = 0.6 oz pur e alcohol) Comments Unknown Sex and Gender Information Value Date Recorded Sex Assigned at Not on file Legal Sex Female 1:02 PM EST Gender Identity Not on file Sexual Orientation Not on file Obstetrics History Plan of Treatment Health Maintenance Due Date Last Done Comments Breast Cancer Screening 1965 Cervical Cancer Screening: P ap Smear 01/18/1985 Pneumococcal Vaccine: 50+ Years (1 of 1 - PCV) 01/18/2014 Zoster Vaccines (1 of 2) 01/18/2014 DTaP,Tdap,and Td Vaccines (3 - Td or Tdap) 05/09/2022 05/09/2012, 02/14/2007 COVID-19 Vaccine ( - 2023-2 5 season) 2024 Influenza Vaccine (#1) 2024 02/04/2019 RSV Immunization Patients 60 + Years Old (1 - 1-dose 75+ series) 01/18/2039 HIB Vaccines Aged Out No longer eligi ble based on patient's age to complete this topic HPV Vaccines Aged Out No longer eligi ble based on patient's age to complete this topic Hepatitis A Vaccines Aged Out No long er eligible based on patient's age to complete this topic Hepatitis B Vaccines Aged Out No long er eligible based on patient's age to complete this topic IPV Vaccines Aged Out No longer eligi ble based on patient's age to complete this topic MMR Vaccines Aged Out No longer eligi ble based on patient's age to complete this topic Meningococcal ACWY Vaccine Aged Out N o longer eligible based on patient's age to complete this topic Meningococcal B Vacine Aged Out No lo nger eligible based on patient's age to complete this topic Pneumococcal Vaccine: Pediatrics (0 to 5 Years) and At-Risk Patients (6 to 64 Years) Aged Out No longer eligible b ased on patient's age to complete this topic RSV Immunization Patients Under 20 months Aged Out No longer eligible b ased on patient's age to complete this topic Varicella Vaccines Aged Out No longer eligible based on patient's age to complete this topic Care Teams Lock Plater Relationship Specialty Start Date End Date Srinivasan Tirado MD PCP - General Internal Medicine 02/08/14
--- OUTSIDE RECORDS SUMMARY | 2024-06-23 16:33 | XMS_ITS | Encounter Summary ---
Author Organization [facility] Address [address] [place] [address] Care Team Providers Care Cathode Ray Tube Salvage Processor Name Role Phone Srinivasan iTrado MD Primary Care Provider [phone] Srinivasan Tirado MD Primary Care Provider [phone] Dimitri Yousif MD Unavailable [phone] Encounter Details Date Type Department Care Team (Late st Contact Info) Description 03/26/2014 Scanned Document [address] [phone] Provider, Generic Social History Tobacco Use Types Packs/Day Years Used Date Smoking Tobacco: Never Assessed Sex and Gender Information Value Date Recorded Sex Assigned at Not on file Gender Identity Not on file Sexual Orientation Not on file documented as of this encounter Plan of Treatment Not on file documented as of this encounter Procedures Procedure Name Priority Date/Time Associated Diagnosis Comments IMAGING BREAST/BX/MAMMO 03/26/2014 documented in this encounter Results * IMAGING BREAST/BX/MAMMO (03/26/2014) Anatomical Region Laterality Modality Other Narrative 03/13/2016 9:25 AM EST Ordered by an unspecified provider. Generic Provider IMG LEGACY PROCEDURE S documented in this encounter Visit Diagnoses Not on filedocumented in this encounter Care Teams Cathode Ray Tube Salvage Processor Relationship Specialty Start Date End Date Srinivasan Tirado MD PCP - General 09/28/14 Srinivasan Tirado MD [address] [facility] [address] [place] [address] PCP - General 06/17/13 09/27/14 Dimitri Yousif MD [address] [facility] [address] [place] [address] Referring Provider 05/22/17 documented as of this encounter
--- OUTSIDE RECORDS SUMMARY | 2024-06-23 16:33 | XMS_ITS | Clinical Summary ---
Author Organization [employer] Address [address] [place] [address] 7 [place] [address] Care Team Providers Care Business Systems Administrator Name Role Phone PcpWendy Unassigned Primary Care Provider U navailable Allergies Active Allergy Reactions Criticality Noted Date Comments Pollen Extract Rash High 09/07/2015 Rash on her face Medications No known medications Encounters Date Type Department Care Team Description 05/07/2024 3:00 PM EST Office Visit [facility] D[facility] [address] [place] [address] Max Justin Stage 2 grade B generalized periodontitis per AAP/EFP 2017 classification (Primary Dx); Encounter for dental examination from Last 3 Months Immunizations Name Administration Dates Next Due INFLUENZA INJECTABLE QUADRIV ALANT CCIIV4 MDCK Multi-dose vial 02/04/2019 INFLUENZA VACCINE QUADRIVALE NT RECOMBINANT PRESERVATIVE FREE RIV4 03/01/2020 Influenza Injectable Quadriv alant Preservative Free IIV4 MDCK 04/15/2018 Tdap 05/09/2012,02/14/2007 Social History Tobacco Use Types Packs/Day Years Used Date Smoking Tobacco: Former Cigarettes Passive Smoke Exposure: Past Smokeless Tobacco: Never Tobacco Cessation:Counseling Given: No Alcohol Use Standard Drinks/Week Comments Not Currently 0 (1 standard drink = 0.6 oz pur e alcohol) Comments Unknown Sex and Gender Information Value Date Recorded Sex Assigned at Female 07/04/2022 8:19 AM EST Legal Sex Female 10:58 PM EDT Gender Identity Female 07/04/2022 8:19 AM EST Sexual Orientation Choose not to disclose 2022 8:19 AM EST Plan of Treatment Upcoming Encounters Date Type Department Care Team (Late st Contact Info) Description 05/12/2025 3:00 PM EST Office Visit [facility] D[facility] [address] [place] [address] Viviana Rachel Health Maintenance Due Date Last Done Comments CT Colonography 1964 Colonoscopy 1964 Colorectal Cancer Screening 1964 Depression Screening 1964 FIT DNA/Cologuard 1964 FIT 1964 FOBT 1964 HIV Screening 1964 SDOH Screening 1964 Sigmoidoscopy 1964 Alcohol/Substance Use Screening 1976 Hepatitis C Screening 01/18/1982 Pap Smear 01/18/1985 Cervical Cancer Screening 01/18/1994 HPV/Cotest 01/18/1994 Pneumococcal Vaccine: 50+ Years (1 of 1 - PCV) 01/18/2014 Zoster Vaccines (1 of 2) 01/18/2014 DTaP/Tdap/Td Vaccines (3 - Td or Tdap) 05/09/2022 05/09/2012, 02/14/2007 Dental X-Ray: Full Mouth 05/03/2023 05/02/2020 COVID-19 Vaccine (3 - season) 2024 09/10/2020, 08/13/2020 Influenza Vaccine (#1) 2024 0, 02/04/2019, 04/15/2018 Dental X-Ray: Bitewings 08/14/2024 08/14/19 24, 07/04/2022, 04/12/2021, Additional history exists Dental Oral Exam 11/05/2024 05/07/2024, 02/2024, 07/04/2022, Additional history exists Dental Prophylaxis 11/05/2024 05/07/2024, 0 08/14/2023, 01/09/2023, Additional history exists Tobacco Screening 05/07/2025 05/07/2024 RSV Patients and Patients Aged 60 years or older (1 - 1-dose 75+ series) 01/18/2039 HIB [...] patient's age to complete this topic Meningococcal Vaccine Aged Out No jr sultana eligible based on patient's age to complete this topic Pneumococcal Vaccine: Pediatrics (0 to 5 Years) and At-Risk Patients (6 to 49) Years) Aged Out No longer eligible based on patient's age to complete this topic RSV under 20 months Aged Out No longe r eligible based on patient's age to complete this topic Rotavirus Vaccines Aged Out No longer eligible based on patient's age to complete this topic Procedures Procedure Name Priority Date/Time Associated Diagnosis Comments ORAL HYGIENE INSTRUCTIONS Routine 2024 3:00 PM EST Full PROPHYLAXIS - ADULT Routine 025 3:00 PM EST PERIODIC ORAL EVALUATION - ESTABLISHED PATIENT Routine 05/07/2024 3:00 PM EST BITEWINGS - 4 RADIOGRAPHIC IMAGES Routine 08/14/2023 2:00 PM EDT INTRAORAL - COMPLETE SERIES OF RADIOGRAPHIC IMAGES Routine 05/02/2020 12:00 AM EST from Last 3 Months or Most Recently Relevant to Health Maintenance Insurance DENTAL - [facility] Care Teams Business Systems Administrator Relationship Specialty Start Date End Date PcpWendy Unassigned PCP - General Family Medicine 09/03/22
[2024-06-23] MEDS: gadobutroL 7.5 ML VIAL IVPUSH (16:54)
== END 2024-06-23 15:50 | disposition home or self-care (01) ==
LOC: HO.MRI 15:49
PROVIDERS: PCP Internal Medicine; Visit Provider Surgery
DX: Z15.89 Genetic susceptibility to other disease (principal); Z80.3 Family history of malignant neoplasm of breast
CPT/HCPCS: 77049; A9585

== ENCOUNTER 2024-06-29 14:23 | Outpatient (AMB) | payer BC, SELFPAY ==
--- NOTE | 2024-06-29 14:24 | MHC.OFFVIS ---
Vital Signs 06/29/24 14:29 Height 5 ft 5 in Weight 176 lb 12.972 oz BMI 29.4 Intake Visit Reasons: 6 month breast exam Intake Note: This patient presents for six month breast examination follow-up. Pt c/o; no breast complaints. Imagin06/23/24 Breast MRI Sludge Control Attendant Required: No Accompanied by: Self / Same As Patient Allergies No Known Allergies Allergy (Verified 06/29/24 14:29) Medication List - Last Reconciled 06/29/24 by Marco A Alcocer MD gabapentin 100 mg PO DAILY HPI HPI 6 month breast exam: Details: She is here for follow-up for her remote history of right breast cancer. She had a lumpectomy in [place] about 14 years ago for this She had an MRI of the breast as part of surveillance last week. She is here to discuss the findings She currently denies any significant complaints. She denies any palpable breast mass. 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 Pruritus Fibroids PMB (postmenopausal bleeding) Gene mutation History of breast cancer Surgical History Hx of colonoscopy History of lumpectomy of right breast History of back surgery History of appendectomy Hx of tubal ligation Family History Mother History of breast cancer Sister History of breast cancer Social History Alcohol intake: current Alcohol intake frequency: does not drink Patient Tobacco Use Status: Former Tobacco user Current occupational status: employed 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 Sexual orientation: Straight/Heterosexual Gender identity: Female Female Reproductive History Menstrual Age of Menarche: 12 Review of Systems Const Denies chills and Denies fever(s) Card Denies chest pain, Denies dyspnea and Denies dyspnea on exertion Resp Denies cough, Denies dyspnea and Denies dyspnea on exertion GI Denies hematochezia and Denies change in bowel habits Denies hematuria Musc Denies back pain and Denies limited range of motion Neuro Denies focal weakness and Denies convulsions Psych Denies depression and Denies mood swings Physical Exam Vital Signs: BMI result Body Mass Index 29.4 Const General: comfortable and no acute distress Orientation/consciousness: patient oriented x3 Neck Neck: Yes no lymphadenopathy Chest Other: No palpable breast masses, no nipple or skin changes, no axillary lymphadenopathy Resp Auscultation: clear to auscultation bilaterally Cardio Rhythm: regular rhythm GI Palpation (GI): Soft to palpation, nontender and no guarding Neuro General: patient oriented x3 Assessment & Plan Assessment & Plan (1) Chest wall mass: Code(s): R22.2 - Localized swelling, mass and lump, trunk Category: Medical Plan: She had her breast MRI and this shows an incidental finding of a right anterior lateral chest wall short all mass that is incompletely evaluated by the MRI. A CT scan had been recommended by the radiologist I have arranged for a CT scan of the chest for her and I will see her in the office to discuss the findings. (2) History of breast cancer: Code(s): Z85.3 - Personal history of malignant neoplasm of breast Category: Medical Plan: Her MRI does not reveal any suspicious masses in the breast. Current exam does not reveal any concerning findings She is to continue with screening mammograms and MRIs for her history of right breast cancer. Orders: Orders CT chest w IV con Today J18.9 - Pneumonia, unspecified organism, J94.8 - Other specified pleural conditions Coding Level of Care Code Est Pt Level 3 (68160) Diagnoses Chest wall mass R22.2 History of breast cancer Z85.3
[2024-06-29 14:29] VITALS: BMI 29.4
--- OUTSIDE RECORDS SUMMARY | 2024-06-29 16:36 | XMS_ITS | Clinical Summary ---
Author Organization [employer] Address [address] [place] [address] 7 [place] [address] Care Team Providers Care Tile And Mottle Supervisor Name Role Phone PcpWendy Unassigned Primary Care Provider U navailable Allergies Active Allergy Reactions Criticality Noted Date Comments Pollen Extract Rash High 09/07/2015 Rash on her face Medications No known medications Encounters Date Type Department Care Team Description 05/07/2024 3:00 PM EST Office Visit [facility] DENTAL [address] [place] [address] Max Justin Stage 2 grade B generalized [...] Description 05/12/2025 3:00 PM EST Office Visit [facility] DENT[facility] [address] [place] [address] Viviana Rachel Health Maintenance Due Date Last [...] Relevant to Health Maintenance Insurance D[facility]AL - [facility] Care Teams Tile And Mottle Supervisor Relationship Specialty Start Date End Date PcpWendy Unassigned PCP - General Family Medicine 09/03/22
--- OUTSIDE RECORDS SUMMARY | 2024-06-29 16:36 | XMS_ITS | Clinical Summary ---
Author Organization [facility] Address [address] [place] [address] Care Team Providers Care Statistical Modeler Name Role Phone Srinivasan Tirado MD Primary Care Provider [phone] Dimitri Yousif MD Unavailable [phone] Allergies No known active allergies Medications [...] Recently Relevant to Health Maintenance Care Teams Statistical Modeler Relationship Specialty Start Date End Date Srinivasan Tirado MD PCP - General 09/28/14 Dimitri Yousif MD [address] [address] Referring Provider 05/22/17
--- OUTSIDE RECORDS SUMMARY | 2024-06-29 16:36 | XMS_ITS | Encounter Summary ---
Author Organization [employer] [facility] Address [address] [place] [address] [address] [address] Care Team Providers Care Disc Ruler Operator Name Role Phone PcpWendy Unassigned Primary Care [...] 05/12/2025 3:00 PM EST Office Visit Wendy [facility] [address] [place] [address] Viviana Rachel documented as of this encounter Visit Diagnoses Not on filedocumented in this encounter Care Teams Disc Ruler Operator Relationship Specialty Start Date End Date Wendy Valadezssgeorgina PCP - General Family Medicine 09/03/22 documented as of this encounter
--- OUTSIDE RECORDS SUMMARY | 2024-06-29 16:36 | XMS_ITS | Clinical Summary ---
Author Organization [facility] Address [address] [place] [address] Care Team Providers Care Docketing Specialist Name Role Phone Srinivasan Tirado MD Primary Care Provider Surgical History Surgery Date Site/Laterality Comments APPENDECTOMY [...] age to complete this topic Care Teams Docketing Specialist Relationship Specialty Start Date End Date Srinivasan Tirado MD PCP - General Internal Medicine 02/08/14
--- OUTSIDE RECORDS SUMMARY | 2024-06-29 16:36 | XMS_ITS | Clinical Summary ---
Author Organization [facility] Address [address] [place] [address] Care Team Providers Care Knuckle Strap Sewer Name Role Phone Srinivasan Tirado MD Primary Care Provider [phone] Allergies Active Allergy Reactions Criticality Noted Date [...] Advance Directives For more information, please contact: [phone] Documents on File Type Date Recorded Patient Calender Wind Up Tender Expl anation Advance Directive and Living Will 01/14/2015 2:49 PM Care Teams Knuckle Strap Sewer Relationship Specialty Start Date End Date Srinivasan Tirado MD PCP - General Internal Medicine 02/08/14
--- OUTSIDE RECORDS SUMMARY | 2024-06-29 16:36 | XMS_ITS | Encounter Summary ---
Author Organization [facility] Address [address] [place] [address] Care Team Providers Care Religious Education Teacher Name Role Phone Srinivasan Tirado MD Primary Care Provider [phone] Srinivasan Tirado MD Primary Care Provider [phone] Dimitri Yousif MD Unavailable [phone] Encounter Details Date Type Department Care Team (Late st Contact Info) Description 03/26/2014 Scanned Document [address] [phone] Provider, Generic Social History Tobacco Use Types [...] on filedocumented in this encounter Care Teams Religious Education Teacher Relationship Specialty Start Date End Date Srinivasan Tirado MD PCP - General 09/28/14 Srinivasan Tirado MD [address] [facility] [address] [place] [address] PCP - General 06/17/13 09/27/14 Dimitri Yousif MD 538 [facility] [address] [place] [address] Referring Provider 05/22/17 documented as of this encounter
--- OUTSIDE RECORDS SUMMARY | 2024-06-29 16:36 | XMS_ITS | Encounter Summary ---
Author Organization [employer] [facility] Address [address] [place] [address] Care Team Providers Care Comic Book Artist Name Role Phone PcpWendy Unassigned Primary Care [...] 05/12/2025 3:00 PM EST Office Visit Wendy [facility] DENT[facility] [address] [place] [address] Viviana Rachel documented as of this encounter Visit Diagnoses Not on filedocumented in this encounter Care Teams Comic Book Artist Relationship Specialty Start Date End Date Wendy Valadez Unassgeorgina PCP - General Family Medicine 09/03/22 documented as of this encounter
--- OUTSIDE RECORDS SUMMARY | 2024-06-29 16:36 | XMS_ITS | Encounter Summary ---
Author Organization [facility] Address [address] [place] [address] Care Team Providers Care Quantitative Software Engineer Name Role Phone Srinivasan Tirado MD Primary Care Provider [phone] Dimitri Yousif MD Unavailable [phone] Encounter Details Date Type Department Care Team (Late st Contact Info) Description 04/19/2016 Scanned Document [address] [place] [phone] Provider, Generic Social History Tobacco Use Types [...] on filedocumented in this encounter Care Teams Quantitative Software Engineer Relationship Specialty Start Date End Date Srinivasan Tirado MD PCP - General 09/28/14 Dimitri Yousif MD [address] [address] Referring Provider 05/22/17 documented as of this encounter
== END 2024-06-29 14:36 | disposition home or self-care (01) ==
PROVIDERS: PCP Internal Medicine; Visit Provider Surgery
DX: R22.2 Localized swelling, mass and lump, trunk (principal); Z85.3 Personal history of malignant neoplasm of breast
CPT/HCPCS: 99213

== ENCOUNTER 2024-07-16 13:57 | Outpatient (REF) | payer BC, SELFPAY ==
--- NOTE | ~2024-07-16 | CT_ITS ---
CLINICAL HISTORY: R22.2 - Localized swelling, mass and lump, trunk CT CHEST WITH CONTRAST Comparison: None Findings: The heart size is normal. The thoracic aorta is normal caliber. There is a large mixed solid and cystic mass in the right thyroid lobe. No lymphadenopathy. No consolidation, pleural effusion or pneumothorax. No pulmonary mass or suspicious pulmonary nodule. There is a 1.3 cm thin walled pulmonary cyst in the right middle lobe. The visualized upper abdomen is unremarkable. Multiple irregular calcific densities measuring up to 11 mm are identified adjacent to the right humeral head and clavicle. There is surrounding hypoattenuation measuring up to 4 cm. No acute or destructive osseous lesion. Thoracic spondylosis. IMPRESSION: 1. Indeterminate mixed solid and cystic lesion in the right thyroid lobe. Suggest further evaluation with thyroid ultrasound. 2. No acute or suspicious intrathoracic process. 3. 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 This document has been electronically signed by: Isabela Medley DO on 07/17/2024 17:05:38
[2024-07-16] MEDS: iohexoL 350 MG/ML 75 ML INFUS..BTL 65 ML IV (16:29)
--- OUTSIDE RECORDS SUMMARY | 2024-07-16 17:43 | XMS_ITS | Encounter Summary ---
Author Organization [facility] Address [address] [place] [address] Care Team Providers Care Ecommerce Project Manager Name Role Phone Srinivasan Tirado MD Primary Care Provider [phone] Dimitri Yousif MD Unavailable [phone] Encounter Details Date Type Department Care Team (Late st Contact Info) Description 04/19/2016 Scanned Document [address] [place] [phone] Provider, Generic Social History Tobacco Use Types [...] on filedocumented in this encounter Care Teams Ecommerce Project Manager Relationship Specialty Start Date End Date Srinivasan Tirado MD PCP - General 09/28/14 Dimitri Yousif MD [address] [address] Referring Provider 05/22/17 documented as of this encounter
--- OUTSIDE RECORDS SUMMARY | 2024-07-16 17:43 | XMS_ITS | Encounter Summary ---
Author Organization [facility] Address [address] [place] [address] [place] [address] Care Team Providers Care Shipping And Receiving Material Handler Name Role Phone PcpWendy Unassigned Primary Care [...] 05/12/2025 3:00 PM EST Office Visit Wendy [facility] D[facility] [address] [place] [address] Viviana Rachel documented as of this encounter Visit Diagnoses Not on filedocumented in this encounter Care Teams Shipping And Receiving Material Handler Relationship Specialty Start Date End Date Wendy Valadezssgeorgina PCP - General Family Medicine 09/03/22 documented as of this encounter
--- OUTSIDE RECORDS SUMMARY | 2024-07-16 17:43 | XMS_ITS | Clinical Summary ---
Author Organization [facility] Address [address] [place] [address] Care Team Providers Care Program Manager Name Role Phone Srinivasan Tirado MD Primary Care Provider [phone] Allergies Active Allergy Reactions Criticality Noted Date [...] Advance Directives For more information, please contact: [phone] Documents on File Type Date Recorded Patient Tile Shader Expl anation Advance Directive and Living Will 01/14/2015 2:49 PM Care Teams Program Manager Relationship Specialty Start Date End Date Srinivasan Tirado MD PCP - General Internal Medicine 02/08/14
--- OUTSIDE RECORDS SUMMARY | 2024-07-16 17:43 | XMS_ITS | Clinical Summary ---
Author Organization [facility] Address [address] [place] [address] Care Team Providers Care Bridge Construction Inspector Name Role Phone Srinivasan Tirado MD Primary Care Provider [phone] Dimitri Yousif MD Unavailable [phone] Allergies No known active allergies Medications [...] or suspicious calcium. ??Benign findings. Denise Kee TERMINAL BLOCK ASSEMBLER IMG MAMMOGRAP HY ORDERABLES from Last 3 Months or Most Recently Relevant to Health Maintenance Care Teams Bridge Construction Inspector Relationship Specialty Start Date End Date Srinivasan Tirado MD PCP - General 09/28/14 Dimitri Yousif MD [address] [address] Referring Provider 05/22/17
--- OUTSIDE RECORDS SUMMARY | 2024-07-16 17:43 | XMS_ITS | Clinical Summary ---
Author Organization [employer] Address [address] [place] [address] 7 [place] [address] Care Team Providers Care Finance Teacher Name Role Phone PcpWendy Unassigned Primary Care Provider U navailable Allergies Active Allergy Reactions Criticality Noted Date Comments Pollen Extract Rash High 09/07/2015 Rash on her face Medications No known medications Encounters Date Type Department Care Team Description 05/07/2024 3:00 PM EST Office Visit [facility] DENTAL [address] [place] [address] Max Justin Stage 2 grade B generalized [...] Description 05/12/2025 3:00 PM EST Office Visit [facility] DENTAL [address] [place] [address] Viviana Rachel Health Maintenance Due Date Last [...] Relevant to Health Maintenance Insurance DENTAL - [facility] Care Teams Finance Teacher Relationship Specialty Start Date End Date PcpWendy Unassigned PCP - General Family Medicine 09/03/22
--- OUTSIDE RECORDS SUMMARY | 2024-07-16 17:43 | XMS_ITS | Encounter Summary ---
Author Organization [facility] Address [address] [place] [address] Care Team Providers Care Phlebotomist Associate Name Role Phone Wendy Valadez Unassigned Primary Care Provider U navailable Encounter [...] 05/12/2025 3:00 PM EST Office Visit Wendy [facility] DENTAL [address] [place] [address] Viviana Rachel documented as of this encounter Visit Diagnoses Not on filedocumented in this encounter Care Teams Phlebotomist Associate Relationship Specialty Start Date End Date Wendy Valadez Unassgeorgina PCP - General Family Medicine 09/03/22 documented as of this encounter
--- OUTSIDE RECORDS SUMMARY | 2024-07-16 17:43 | XMS_ITS | Clinical Summary ---
Author Organization [facility] Address [address] [place] [address] Care Team Providers Care Receiving Tank Operator Name Role Phone Srinivasan Tirado MD Primary Care Provider [phone] Surgical History Surgery Date Site/Laterality Comments APPENDECTOMY [...] age to complete this topic Care Teams Receiving Tank Operator Relationship Specialty Start Date End Date Srinivasan Tirado MD PCP - General Internal Medicine 02/08/14
--- OUTSIDE RECORDS SUMMARY | 2024-07-16 17:43 | XMS_ITS | Encounter Summary ---
Author Organization [facility] Address [address] [place] [address] Care Team Providers Care Physician Advisor Name Role Phone Srinivasan Tirado MD Primary Care Provider [phone] Srinivasan Tirado MD Primary Care Provider [phone] Dimitri Yousif MD Unavailable [phone] Encounter Details Date Type Department Care Team (Late st Contact Info) Description 03/26/2014 Scanned Document [address] [phone] Provider, Generic Social History Tobacco Use Types [...] on filedocumented in this encounter Care Teams Physician Advisor Relationship Specialty Start Date End Date Srinivasan Tirado MD PCP - General 09/28/14 Srinivasan Tirado MD [address] [facility] [address] [place] [address] PCP - General 06/17/13 09/27/14 Dimitri Yousif MD 538 [facility] [address] [place] [address] Referring Provider 05/22/17 documented as of this encounter
[2024-07-17 07:46] LABS: Creatinine POC 0.9 mg/dL (0.5-1.4); GFR POC > 60
== END 2024-07-16 13:58 | disposition home or self-care (01) ==
LOC: HO.CT 13:57
PROVIDERS: PCP Internal Medicine; Visit Provider Surgery
DX: J18.9 Pneumonia, unspecified organism (principal); J94.8 Other specified pleural conditions; R22.2 Localized swelling, mass and lump, trunk
CPT/HCPCS: 71260; 82565; Q9967

== ENCOUNTER → 2024-07-16 14:00 | Outpatient (BNV) | payer BC, SELFPAY | PROVIDERS: PCP Internal Medicine; Visit Provider Radiology Diagnostic Radiology | DX: E04.1 Nontoxic single thyroid nodule (principal) | CPT/HCPCS: 71260 ==

== ENCOUNTER 2024-07-23 09:08 | Outpatient (AMB) | payer BC, SELFPAY ==
--- NOTE | 2024-07-23 09:11 | MHC.OFFVIS ---
Vital Signs 07/23/24 09:15 Height 5 ft 5 in Weight 175 lb 6 oz BMI 29.2 BP 131/75 Blood Pressure Location Rt brachial Position Sitting Pulse 65 Intake Visit Reasons: CT Scan results Intake Note: This patient presents for Breast MRI results. Pt c/o; reports no changes or complaints. Imagin06/23/2024-Breast MRI 07/17/2024- Chest CT Cleaner And Presser Required: No Accompanied by: Other Relationship Allergies No Known Allergies Allergy (Verified 07/23/24 09:16) Medication List - Last Reconciled 07/23/24 by Marco A Alcocer MD gabapentin 100 mg PO DAILY HPI HPI CT Scan results: Details: She is here for follow-up for her chest CT scan. I would sent her for this because of a finding of a fluid collection in the lateral chest wall near the shoulder joint. 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 She says she has had this problem for many years. 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 Pruritus Fibroids PMB (postmenopausal bleeding) Gene mutation History of breast cancer Surgical History Hx of colonoscopy History of lumpectomy of right breast History of back surgery History of appendectomy Hx of tubal ligation Family History Mother History of breast cancer Sister History of breast cancer Social History Alcohol intake: current Alcohol intake frequency: does not drink Patient Tobacco Use Status: Former Tobacco user Current occupational status: employed 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 Sexual orientation: Straight/Heterosexual Gender identity: Female Female Reproductive History Menstrual Age of Menarche: 12 Review of Systems Const Denies chills and Denies fever(s) Card Denies chest pain at rest Resp Denies cough GI Denies abdominal pain Physical Exam Vital Signs: Last Vital Signs Pulse 65 07/23/24 09:15 BP 131/75 07/23/24 09:15 BMI result Body Mass Index 29.2 Const General: comfortable and no acute distress Chest Other: No palpable mass on the lateral chest wall area nor the area near the right shoulder Resp Effort & Inspection: normal respiratory effort Cardio Rate: regular rate Assessment & Plan Assessment & Plan (1) Chest wall mass: Code(s): R22.2 - Localized swelling, mass and lump, trunk Category: Medical Plan: I have reviewed her CAT scan and this does show what appears to be a fluid collection near the shoulder joint anteriorly at the chest wall. This is likely related to her arthritis. I will review this with the radiologist. This is benign looking She does have note of a mixed cystic/solid lesion on the right thyroid lobe. An ultrasound has been recommended by the radiologist so we will order this. I will reach out to her to discuss the findings then. She and her understood the plan. Coding Level of Care Code Est Pt Level 3 (78132) Diagnoses Chest wall mass R22.2
[2024-07-23 09:15] VITALS: BP 131/75; PULSE 65; BMI 29.2
--- OUTSIDE RECORDS SUMMARY | 2024-07-23 09:45 | XMS_ITS | Clinical Summary ---
Author Organization [facility] Address [address] [place] [address] Care Team Providers Care Wood Heel Back Liner Name Role Phone Srinivasan Tirado MD Primary Care Provider [phone] Surgical History Surgery Date Site/Laterality Comments APPENDECTOMY [...] age to complete this topic Care Teams Wood Heel Back Liner Relationship Specialty Start Date End Date Srinivasan Tirado MD PCP - General Internal Medicine 02/08/14
--- OUTSIDE RECORDS SUMMARY | 2024-07-23 09:45 | XMS_ITS | Encounter Summary ---
Author Organization [facility] Address [address] [place] [address] Care Team Providers Care Artificial Leather Calender Operator Name Role Phone Srinivasan Tirado MD Primary Care Provider [phone] Dimitri Yousif MD Unavailable [phone] Reason for Visit * Reason Comments Appointment Encounter Details Date Type Department Care Team (Late st Contact Info) Description 07/17/2024 Telephone [facility] [address] [place] [phone] Anum Wilson [address] [place], [place] [id number] Appointment Social History Tobacco Use Types Packs/Day Years [...] on file documented as of this encounter Miscellaneous Notes * Telephone Encounter - Anum Wilson - 07/17/2024 11:31 AM EDT Called patient from [facility]. EMILIANA documented in this encounter Plan of Treatment Not on file documented as of this encounter Visit Diagnoses Not on filedocumented in this encounter Care Teams Artificial Leather Calender Operator Relationship Specialty Start Date End Date Srinivasan Tirado MD PCP - General 09/28/14 Dimitri Yousif MD [address] [address] Referring Provider 05/22/17 documented as of this encounter
--- OUTSIDE RECORDS SUMMARY | 2024-07-23 09:45 | XMS_ITS | Clinical Summary ---
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 Family history of malignant neoplasm of breast 0 05/12/2016 Encounters Date Type Department Care Team Description 07/17/2024 Telephone [facility], [address] [place] [address] Anum Wilson Appointment from Last 3 Months Family History Medical History Relation Name Comments [...] history exists Influenza Vaccine 12/05/2023 COVID-19 Vaccine (2023- season) 2024 RSV Vaccine 60 years and [...] Recently Relevant to Health Maintenance Care Teams Dental Appliance Fixer Relationship Specialty Start Date End Date Srinivasan Tirado MD PCP - General 09/28/14 Dimitri Yousif MD [address] [address] Referring Provider 05/22/17
--- OUTSIDE RECORDS SUMMARY | 2024-07-23 09:45 | XMS_ITS | Encounter Summary ---
Author Organization [facility] Address [address] [place] [address] Care Team Providers Care Institutional Research Director Name Role Phone Srinivasan Tirado MD Primary Care Provider [phone] Dimitri Yousif MD Unavailable [phone] Encounter Details Date Type Department Care Team (Late st Contact Info) Description 04/19/2016 Scanned Document [address] [place] [phone] Provider, Generic Social History Tobacco Use Types [...] on filedocumented in this encounter Care Teams Institutional Research Director Relationship Specialty Start Date End Date Srinivasan Tirado MD PCP - General 09/28/14 Dimitri Yousif MD [address] [address] Referring Provider 05/22/17 documented as of this encounter
--- OUTSIDE RECORDS SUMMARY | 2024-07-23 09:45 | XMS_ITS | Encounter Summary ---
Author Organization [facility] Address [address] [place] [address] Care Team Providers Care Machinist Linotype Name Role Phone Srinivasan iTrado MD Primary Care Provider [phone] Srinivasan Tirado MD Primary Care Provider [phone] Dimitri Yousif MD Unavailable [phone] Encounter Details Date Type Department Care Team (Late st Contact Info) Description 03/26/2014 Scanned Document [address] [phone] Provider, Generic Social History Tobacco Use Types [...] on filedocumented in this encounter Care Teams Machinist Linotype Relationship Specialty Start Date End Date Srinivasan Tirado MD PCP - General 09/28/14 Srinivasan Tirado MD [address] [facility] [address] [place] [address] PCP - General 06/17/13 09/27/14 Dimitri Yousif MD 538 [facility] [address] [place] [address] Referring Provider 05/22/17 documented as of this encounter
--- OUTSIDE RECORDS SUMMARY | 2024-07-23 09:45 | XMS_ITS | Clinical Summary ---
Author Organization [employer] Address [address] [place] [address] 7 [place] [address] Care Team Providers Care Scrum Product Owner Name Role Phone PcpWendy Unassigned Primary Care Provider U navailable Allergies Active Allergy Reactions Criticality Noted Date Comments Pollen Extract Rash High 09/07/2015 Rash on her face Medications No known medications Encounters Date Type Department Care Team Description 05/07/2024 3:00 PM EST Office Visit [facility] DENTAL [address] [place] [address] Max Justin Stage 2 grade B generalized [...] Description 05/12/2025 3:00 PM EST Office Visit [facility] DENTAL [address] [place] [address] Viviana Rachel Health Maintenance Due Date Last [...] Relevant to Health Maintenance Insurance DENTAL - [facility] Care Teams Scrum Product Owner Relationship Specialty Start Date End Date PcpWendy Unassigned PCP - General Family Medicine 09/03/22
--- OUTSIDE RECORDS SUMMARY | 2024-07-23 09:45 | XMS_ITS | Clinical Summary ---
Author Organization [facility] Address [address] [place] [address] Care Team Providers Care Occupational Safety Specialist Name Role Phone Srinivasan Tirado MD Primary Care Provider [phone] Allergies Active Allergy Reactions Criticality Noted Date [...] Advance Directives For more information, please contact: [phone] Documents on File Type Date Recorded Patient Promotions Coordinator Expl anation Advance Directive and Living Will 01/14/2015 2:49 PM Care Teams Occupational Safety Specialist Relationship Specialty Start Date End Date Srinivasan Tirado MD PCP - General Internal Medicine 02/08/14
--- OUTSIDE RECORDS SUMMARY | 2024-07-23 09:45 | XMS_ITS | Encounter Summary ---
Author Organization [employer] [facility] Address [address] [place] [address] [place] [address] Care Team Providers Care University Controller Name Role Phone PcpWendy Unassigned Primary Care [...] 05/12/2025 3:00 PM EST Office Visit Wendy [facility] DENTAL [address] [place] [address] Viviana Rachel documented as of this encounter Visit Diagnoses Not on filedocumented in this encounter Care Teams University Controller Relationship Specialty Start Date End Date Wendy Valadez Unassgeorgina PCP - General Family Medicine 09/03/22 documented as of this encounter
--- OUTSIDE RECORDS SUMMARY | 2024-07-23 09:45 | XMS_ITS | Encounter Summary ---
Author Organization [facility] Address [address] [place] [address] Care Team Providers Care Receiving Manager Name Role Phone Wendy Valadez Unassigned Primary [...] 05/12/2025 3:00 PM EST Office Visit Wendy [facility] DENTAL [address] [place] [address] Viviana Rachel documented as of this encounter Visit Diagnoses Not on filedocumented in this encounter Care Teams Receiving Manager Relationship Specialty Start Date End Date Wendy Valadez Unassgeorgina PCP - General Family Medicine 09/03/22 documented as of this encounter
== END 2024-07-23 09:25 | disposition home or self-care (01) ==
PROVIDERS: PCP Internal Medicine; Visit Provider Surgery
DX: R22.2 Localized swelling, mass and lump, trunk (principal)
CPT/HCPCS: 99213

== ENCOUNTER 2024-08-19 13:47 | Outpatient (REF) | payer BC, SELFPAY ==
--- NOTE | ~2024-08-19 | US_ITS ---
EXAMINATION: US THYROID HISTORY: E04.1 - Nontoxic single thyroid nodule TECHNIQUE: Real-time grayscale ultrasound imaging was performed and images were reviewed. COMPARISON: Correlation is made with a chest CT dated 07/16/2024. FINDINGS: SIZE: The right thyroid lobe measures 7.3 x 2.0 x 3.6 cm. The left thyroid lobe measures 5.5 x 1.7 x 1.7 cm. The isthmus measures 5 mm. FLOW: Flow to the gland is increased. ECHOGENICITY: The echotexture of the gland is heterogeneous. NODULES: Multiple bilateral thyroid nodules are identified as described below: Nodule #: 1 Location: Right isthmus measuring 5 x 3 x 4 mm. Shape: Wider than tall (0 points) Margins: Ill-defined (0 points) Echotexture: Isoechoic (1 point) Composition: Solid (2 points) Calcifications: None (0 points) Total points: 3 TIRADS: TR3: Mildly suspicious. Nodule #: 2 Location: Mid to lower pole of the right thyroid lobe measuring 4.4 x 2.3 x 3.7 cm. Shape: Wider than tall (0 points) Margins: Ill-defined (0 points) Echotexture: Indeterminate (1 point) Composition: Mostly solid (2 points) Calcifications: Macrocalcifications (1 point) Total points: 4 TIRADS: TR4: Moderately suspicious. Nodule #: 3 Location: Lower pole of the right thyroid lobe measuring 10 x 5 x 9 mm. Shape: Round (0 points) Margins: Smooth (0 points) Echotexture: Hypoechoic (2 points) Composition: Mostly solid (2 points) Calcifications: None (0 points) Total points: 4 TIRADS: TR4: Moderately suspicious. Nodule #: 4 Location: Lower pole of the left thyroid lobe measuring 11 x 5 x 10 mm. Shape: Wider than tall (0 points) Margins: Ill-defined (0 points) Echotexture: Indeterminate (1 point) Composition: Mostly solid (2 points) Calcifications: None (0 points) Total points: 3 TIRADS: TR3: Mildly suspicious. Nodule #: 5 Location: Right isthmus measuring 6 x 3 x 6 mm. Shape: Wider than tall (0 points) Margins: Smooth (0 points) Echotexture: Hypoechoic (2 points) Composition: Solid (2 points) Calcifications: None (0 points) Total points: 4 TIRADS: TR4: Moderately suspicious. US/US thyroid IMPRESSION: Ultimately bilateral thyroid nodules as described above. As per ACR TI-RADS guidelines below, ultrasound-guided fine-needle aspiration of the dominant nodule at the mid to lower pole of the right thyroid lobe (nodule #2) is recommended. ACR TI-RADS Guidelines TR1 (0 points): Benign, No follow-up or biopsy required TR2 (2 points): Not Suspicious, No biopsy or follow up indicated TR3 (3 points): Mildly Suspicious, FNA if >= 2.5 cm, Follow if >= 1.5 cm TR4 (4-6 points): Moderately Suspicious, FNA if >= 1.5 cm, Follow if >= 1.0 cm TR5 (>=7 points): Highly Suspicious, FNA if >= 1.0 cm, Follow if >= 0.5 cm Electronically signed by: Cornell Montiel MD 08/20/2024 07:43 AM EDT
--- OUTSIDE RECORDS SUMMARY | 2024-08-19 16:28 | XMS_ITS | Encounter Summary ---
Author Organization [employer] [facility] Address [address] [place] [address] [address] [address] Care Team Providers Care Crusher Foreman Name Role Phone PcpWendy Unassigned Primary Care [...] 05/12/2025 3:00 PM EST Office Visit Wendy [facility] DENTAL [address] [place] [address] Viviana Rachel documented as of this encounter Visit Diagnoses Not on filedocumented in this encounter Care Teams Crusher Foreman Relationship Specialty Start Date End Date Wendy Valadezssgeorgina PCP - General Family Medicine 09/03/22 documented as of this encounter
--- OUTSIDE RECORDS SUMMARY | 2024-08-19 16:28 | XMS_ITS | Encounter Summary ---
Author Organization [facility] Address [address] [place] [address] Care Team Providers Care Stripping Shovel Operator Name Role Phone Srinivasan Tirado MD Primary Care Provider [phone] Dimitri Yousif MD Unavailable [phone] Encounter Details Date Type Department Care Team (Late st Contact Info) Description 04/19/2016 Scanned Document [address] [place] [phone] Provider, Generic Social History Tobacco Use Types Packs/Day Years Used Date Smoking Tobacco: Former Alcohol Use Standard Drinks/Week Comments Yes 0 (1 standard drink = 0.6 oz pur e alcohol) Comments Unknown Sex and Gender Information Value Date Recorded Sex Assigned at Not on file Legal Sex Female 6:21 PM EDT Gender Identity Not on file Sexual Orientation Not on file documented as of this encounter Plan of Treatment Not on file documented as of this encounter Procedures Procedure Name Priority Date/Time Associated Diagnosis Comments IMAGING BREAST/BX/MAMMO 04/19/2016 documented in this encounter Results * IMAGING BREAST/BX/MAMMO (04/19/2016) Anatomical Region Laterality Modality Other Narrative 05/29/2016 6:33 AM EST Ordered by an unspecified provider. us Generic Provider IMG LEGACY PROCEDURES Final Res ult documented in this encounter Visit Diagnoses Not on filedocumented in this encounter Care Teams Stripping Shovel Operator Relationship Specialty Start Date End Date Srinivasan Tirado MD PCP - General 09/28/14 Dimitri Yousif MD [address] [address] Referring Provider 05/22/17 documented as of this encounter
--- OUTSIDE RECORDS SUMMARY | 2024-08-19 16:28 | XMS_ITS | Encounter Summary ---
Author Organization [facility] Address [address] [place] [address] Care Team Providers Care Inspector Sheet Metal Parts Name Role Phone Srinivasan Tirado MD Primary Care Provider [phone] Srinivasan Tirado MD Primary Care Provider [phone] Dimitri Yousif MD Unavailable [phone] Encounter Details Date Type Department Care Team (Late st Contact Info) Description 03/26/2014 Scanned Document [address] [phone] Provider, Generic Social History Tobacco Use Types [...] on filedocumented in this encounter Care Teams Inspector Sheet Metal Parts Relationship Specialty Start Date End Date Srinivasan Tirado MD PCP - General 09/28/14 Srinivasan Tirado MD 1000 [facility] [address] [place] [address] PCP - General 06/17/13 09/27/14 Dimitri Yousif MD [address] [place] [address] Referring Provider 05/22/17 documented as of this encounter
--- OUTSIDE RECORDS SUMMARY | 2024-08-19 16:28 | XMS_ITS | Clinical Summary ---
Author Organization [facility] Address [address] [place] [address] Care Team Providers Care Labor Relations Supervisor Name Role Phone Srinivasan Tirado MD Primary Care Provider [phone] Surgical History Surgery Date Site/Laterality Comments APPENDECTOMY 2011 PROCEDURE:APPENDECTOMY BREAST LUMPECTOMY 2012 Right PROCEDURE:BREAST LUMPECTOMY TUBAL LIGATION 1993 PROCEDURE:TUBAL LIGATION Medical History Medical History Date Comments Cancer (CMS/HCC V24, CMS/HCC V28) DX:Cancer (HCC);COMMENT:breast cancer Varicella DX:Varicella;COM MENT:as a child Visual [...] Health Maintenance Due Date Last Done Comments Cervical Cancer Screening: P ap Smear 01/18/1985 Pneumococcal Vaccine: 50+ Years (1 of 1 - PCV) 01/18/2014 Zoster Vaccines (1 of 2) 01/18/2014 Breast Cancer Screening 05/28/2020 05/28/2018 DTaP,Tdap,and Td Vaccines (3 - Td or Tdap) 05/09/2022 05/09/2012, 02/14/2007 COVID-19 Vaccine ( - 2023-2 5 season) 2024 Influenza Vaccine (Season Ended) 2025 03/01/2020, 02/04/2019, 04/15/2018 RSV Immunization Adult Patients (1 - 1-dose 75+ series) 01/18/2039 HIB [...] age to complete this topic Meningococcal B Vaccine Aged Out No l onger eligible based on patient's age to complete [...] age to complete this topic Care Teams Labor Relations Supervisor Relationship Specialty Start Date End Date Srinivasan Tirado MD PCP - General Internal Medicine 02/08/14
--- OUTSIDE RECORDS SUMMARY | 2024-08-19 16:28 | XMS_ITS | Encounter Summary ---
Author Organization [facility] [facility] Address [address] [place] [address] Care Team Providers Care V Block Saw Operator Name Role Phone PcpWendy Unassigned Primary [...] 05/12/2025 3:00 PM EST Office Visit Wendy [facility] DENTAL [address] [place] [address] Viviana Rachel documented as of this encounter Visit Diagnoses Not on filedocumented in this encounter Care Teams V Block Saw Operator Relationship Specialty Start Date End Date Wendy Valadez Unassgeorgina PCP - General Family Medicine 09/03/22 documented as of this encounter
--- OUTSIDE RECORDS SUMMARY | 2024-08-19 16:28 | XMS_ITS | Clinical Summary ---
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 ??Benign findings. Denise Kee APRN [facility] ORDER YVONNE Final Result from Last 3 Months or Most Recently Relevant to Health Maintenance Insurance Care Teams Die Maintenance Relationship Specialty Start Date End Date Srinivasan Tirado MD PCP - General 09/28/14 Dimitri Yousif MD [address] [address] Referring Provider 05/22/17
--- OUTSIDE RECORDS SUMMARY | 2024-08-19 16:29 | XMS_ITS | Clinical Summary ---
Author Organization [employer] Address 75 [facility] 7 [place] [address] Care Team Providers Care Electrical Controls Designer Name Role Phone PcpWendy Unassigned Primary Care Provider U navailable Allergies Active Allergy Reactions Criticality Noted Date Comments Pollen Extract Rash High 09/07/2015 Rash on her face Medications No known medications Immunizations Name Administration Dates Next Due INFLUENZA [...] 3:00 PM EST Office Visit [facility] DENTAL [address] [place] [address] Viviana Rachel Health Maintenance Due Date Last [...] Procedure Name Priority Date/Time Associated Diagnosis Comments Full PROPHYLAXIS - ADULT Routine 025 3:00 PM EST PERIODIC ORAL EVALUATION - ESTABLISHED PATIENT Routine 05/07/2024 3:00 PM EST BITEWINGS - 4 RADIOGRAPHIC IMAGES Routine 08/14/2023 2:00 PM EDT INTRAORAL - COMPLETE SERIES OF RADIOGRAPHIC IMAGES Routine 05/02/2020 12:00 AM EST from Last 3 Months or Most Recently Relevant to Health Maintenance Insurance DENTAL - [facility] Care Teams Electrical Controls Designer Relationship Specialty Start Date End Date PcpWendy Unassigned PCP - General Family Medicine 09/03/22
--- OUTSIDE RECORDS SUMMARY | 2024-08-19 16:29 | XMS_ITS | Clinical Summary ---
Author Organization [facility] Address [address] [place] [address] Care Team Providers Care Casting Supervisor Name Role Phone Srinivasan Tirado MD Primary Care Provider [phone] Allergies Active Allergy Reactions Criticality Noted Date [...] Advance Directives For more information, please contact: [phone] Documents on File Type Date Recorded Patient Rv Technician Expl anation Advance Directive and Living Will 01/14/2015 2:49 PM Care Teams Casting Supervisor Relationship Specialty Start Date End Date Srinivasan Tirado MD PCP - General Internal Medicine 02/08/14
== END 2024-08-19 13:48 | disposition home or self-care (01) ==
LOC: HO.US 13:47
PROVIDERS: PCP Internal Medicine; Visit Provider Surgery
DX: E04.1 Nontoxic single thyroid nodule (principal)
CPT/HCPCS: 76536

== ENCOUNTER → 2024-08-19 13:49 | Outpatient (BNV) | payer BC, SELFPAY | PROVIDERS: PCP Internal Medicine; Visit Provider Radiology Diagnostic Radiology | DX: E04.1 Nontoxic single thyroid nodule (principal) | CPT/HCPCS: 76536 ==

== ENCOUNTER 2024-09-10 10:22 | Outpatient (REF) | payer BC, SELFPAY ==
--- NOTE | ~2024-09-10 | US_ITS ---
Examination: Ultrasound-guided right thyroid nodule biopsy. CLINICAL INDICATION: Nontoxic single right thyroid nodule. COMPARISON: Ultrasound thyroid 08/19/2024. TECHNIQUE: Following explaining ultrasound-guided right thyroid nodule biopsy procedure, benefits and risk, a written consent was obtained. Preliminary ultrasound imaging was obtained through the neck and both lobes were evaluated. The right mid pole large nodule was localized on the skin and a marker placed. The marked area along the anterior neck was cleaned and draped in usual sterile manner with 2% chlorhexidine solution. 1% local Xylocaine was injected at the puncture site. Under sterile ultrasound guidance a 25-gauge needle attached to a syringe was advanced through the right side into the right middle pole nodule and a 4 pass fine-needle aspiration biopsy was performed. Postprocedure complete hemostasis achieved and sterile Band-Aid applied postprocedure. Patient tolerated procedure extremely well. FINDINGS/ US/US guided fine needle asp IMPRESSION: There is a large heterogenous predominantly solid mass in the mid pole right thyroid lobe with some cystic component. Successful ultrasound-guided right thyroid nodule fine-needle aspiration biopsy performed. Electronically signed by: Maciel Smith MD 09/11/2024 09:59 AM EDT
--- OUTSIDE RECORDS SUMMARY | 2024-09-10 11:37 | XMS_ITS | Encounter Summary ---
Author Organization [facility] Address [address] [place] [address] Care Team Providers Care Hydro Generation Manager Name Role Phone Srinivasan Tirado MD Primary Care Provider [phone] Srinivasan Tirado MD Primary Care Provider [phone] Dimitri Yousif MD Unavailable [phone] Encounter Details Date Type Department Care Team (Late st Contact Info) Description 03/26/2014 Scanned Document [address] [phone] Provider, Generic Social History Tobacco Use Types [...] on filedocumented in this encounter Care Teams Hydro Generation Manager Relationship Specialty Start Date End Date Srinivasan Tirado MD PCP - General 09/28/14 Srinivasan Tirado MD [address] [facility] [address] [place] [address] PCP - General 06/17/13 09/27/14 Dimitri Yousif MD [address] [place] [address] Referring Provider 05/22/17 documented as of this encounter
--- OUTSIDE RECORDS SUMMARY | 2024-09-10 11:37 | XMS_ITS | Encounter Summary ---
Author Organization [employer] [facility] Address [address] [facility] [address] [address] Care Team Providers Care Shipyard Painter Apprentice Name Role Phone PcpWendy Unassigned Primary Care [...] Visit Wendy [facility] [address] [place] [address] Viviana Rachel documented as of this encounter Visit Diagnoses Not on filedocumented in this encounter Care Teams Shipyard Painter Apprentice Relationship Specialty Start Date End Date Wendy Valadezssgeorgina PCP - General Family Medicine 09/03/22 documented as of this encounter
--- OUTSIDE RECORDS SUMMARY | 2024-09-10 11:37 | XMS_ITS | Encounter Summary ---
Author Organization [employer] [facility] Address [address] [place] [address] [place] [address] Care Team Providers Care Profile Grinder Name Role Phone Wendy Valadez Unassigned Primary [...] 05/12/2025 3:00 PM EST Office Visit Wendy [facility] [address] [place] [address] Viviana Rachel documented as of this encounter Visit Diagnoses Not on filedocumented in this encounter Care Teams Profile Grinder Relationship Specialty Start Date End Date Wendy Valadez Unassgeorgina PCP - General Family Medicine 09/03/22 documented as of this encounter
--- OUTSIDE RECORDS SUMMARY | 2024-09-10 11:37 | XMS_ITS | Clinical Summary ---
Author Organization [employer] Address [address] [facility] 7 [place] [address] Care Team Providers Care Valve Mechanic Name Role Phone PcpWendy Unassigned Primary Care [...] Description 05/12/2025 3:00 PM EST Office Visit [facility] [address] [place] [address] Viviana Rachel Health Maintenance Due Date Last [...] Relevant to Health Maintenance Insurance [facility]AL - [facility] Care Teams Valve Mechanic Relationship Specialty Start Date End Date PcpWendy Unassigned PCP - General Family Medicine 09/03/22
--- OUTSIDE RECORDS SUMMARY | 2024-09-10 11:37 | XMS_ITS | Encounter Summary ---
Author Organization [facility] Address [address] [place] [address] Care Team Providers Care Hospital Nurse Name Role Phone Srinivasan Tirado MD Primary Care Provider [phone] Dimitri Yousif MD Unavailable [phone] Encounter Details Date Type Department Care Team (Late st Contact Info) Description 04/19/2016 Scanned Document [address] [place] [phone] Provider, Generic Social History Tobacco Use Types [...] on filedocumented in this encounter Care Teams Hospital Nurse Relationship Specialty Start Date End Date Sriinvasan Tirado MD PCP - General 09/28/14 Dimitri Yousif MD [address] [address] Referring Provider 05/22/17 documented as of this encounter
--- OUTSIDE RECORDS SUMMARY | 2024-09-10 11:37 | XMS_ITS | Clinical Summary ---
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 ??Benign findings. Denise Kee APRN [facility] MAMMOGRAPHY ORDER YVONNE Final Result from Last 3 Months or Most Recently Relevant to Health Maintenance Insurance Care Teams Cross Country Truck Driver Relationship Specialty Start Date End Date Srinivasan Tirado MD PCP - General 09/28/14 Dimitri Yousif MD [address] [address] Referring Provider 05/22/17
--- OUTSIDE RECORDS SUMMARY | 2024-09-10 11:37 | XMS_ITS | Clinical Summary ---
Author Organization [facility] Address [address] [place] [address] Care Team Providers Care Chief Solution Architect Name Role Phone Srinivasan Tirado MD Primary Care Provider [phone] Allergies Active Allergy Reactions Criticality Noted Date [...] Advance Directives For more information, please contact: [phone] Documents on File Type Date Recorded Patient Food And Beverage Director Expl anation Advance Directive and Living Will 01/14/2015 2:49 PM Care Teams Chief Solution Architect Relationship Specialty Start Date End Date Srinivasan Tirado MD PCP - General Internal Medicine 02/08/14
--- OUTSIDE RECORDS SUMMARY | 2024-09-10 11:37 | XMS_ITS | Clinical Summary ---
Author Organization [facility] Address [address] [place] [address] Care Team Providers Care Director Of Strategic Communications Name Role Phone Srinivasan Tirado MD Primary Care Provider [phone] Surgical History Surgery Date Site/Laterality Comments APPENDECTOMY [...] age to complete this topic Care Teams Director Of Strategic Communications Relationship Specialty Start Date End Date Srinivasan Tirado MD PCP - General Internal Medicine 02/08/14
[2024-09-10] MEDS: Lidocaine HCl 1 % MPF 5 ML VIAL SUBCUT (11:48)
== END 2024-09-10 10:23 | disposition home or self-care (01) ==
LOC: HO.US 10:22
PROVIDERS: PCP Internal Medicine; Visit Provider Surgery
DX: E04.1 Nontoxic single thyroid nodule (principal)
CPT/HCPCS: 10005; 88173; 88305; J2003

== ENCOUNTER → 2024-09-10 10:24 | Outpatient (BNV) | payer BC, SELFPAY | PROVIDERS: PCP Internal Medicine; Visit Provider Radiology Diagnostic Radiology | DX: E04.1 Nontoxic single thyroid nodule (principal) | CPT/HCPCS: 10005 ==

== ENCOUNTER 2024-09-30 14:39 | Outpatient (AMB) | payer BC, SELFPAY ==
--- NOTE | 2024-09-30 14:40 | A.OFFVIS_ITS ---
Vital Signs 09/30/24 14:44 Height 5 ft 5 in Weight 171 lb BMI 28.5 BP 112/62 Blood Pressure Location Rt brachial Position Sitting Pulse 77 Intake Visit Reasons: s/p us needle asp and path report Intake Note: Patient here s/p Us guided fine needle aspiration bx of Rt thyroid nodule. Reports bx site healed well. Procedure: Ultrasound-guided right thyroid nodule biopsy~ 09-10-2024 Regional Project Manager Required: No Accompanied by: Self / Same As Patient Allergies No Known Allergies Allergy (Verified 09/30/24 14:45) Medication List - Last Reconciled 09/30/24 by Marco A Alcocer MD gabapentin 100 mg PO DAILY HPI HPI s/p us needle asp and path report: Details: I had sent for an ultrasound aspiration of a thyroid last 09/11/2024. She is here to discuss the findings. She says she tolerated the procedure well. 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 Pruritus Fibroids PMB (postmenopausal bleeding) Gene mutation History of breast cancer Surgical History Hx of colonoscopy History of lumpectomy of right breast History of back surgery History of appendectomy Hx of tubal ligation Family History Mother History of breast cancer Sister History of breast cancer Social History Alcohol intake: current Alcohol intake frequency: does not drink Patient Tobacco Use Status: Former Tobacco user Current occupational status: employed 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 Sexual orientation: Straight/Heterosexual Gender identity: Female Female Reproductive History Menstrual Age of Menarche: 12 Review of Systems Const Denies chills and Denies fever(s) Card Denies chest pain, Denies dyspnea and Denies dyspnea on exertion Resp Denies cough, Denies dyspnea and Denies dyspnea on exertion GI Denies hematochezia and Denies change in bowel habits Denies hematuria Musc Denies back pain and Denies limited range of motion Neuro Denies focal weakness and Denies convulsions Psych Denies depression and Denies mood swings Physical Exam Vital Signs: Last Vital Signs Pulse 77 09/30/24 14:44 BP 112/62 05/28/25 14:44 BMI result Body Mass Index 28.5 Const General: comfortable and no acute distress Neck Other: Palpable enlarged thyroid on the right side, no cervical lymphadenopathy Resp Effort & Inspection: normal respiratory effort Cardio Rate: regular rate Assessment & Plan Assessment & Plan (1) Thyroid nodule: Code(s): E04.1 - Nontoxic single thyroid nodule Category: Medical Plan: Ultrasound aspiration done was not definitive. We are going to therefore send her to head and neck surgeon for further evaluation because of the mixed thyroid nodule. She understands the plan. This will be in [facility] or in [place] as we do not have a head and neck surgeon here in [place]. Coding Level of Care Code Est Pt Level 2 (51507) Diagnoses Thyroid nodule E04.1
[2024-09-30 14:44] VITALS: BP 112/62; PULSE 77; BMI 28.5
--- OUTSIDE RECORDS SUMMARY | 2024-09-30 15:30 | XMS_ITS | Clinical Summary ---
Author Organization [facility] Address [address] [place] [address] Care Team Providers Care Clay Hoister Name Role Phone Srinivasan Triado MD Primary Care Provider [phone] Surgical History Surgery Date Site/Laterality Comments APPENDECTOMY [...] age to complete this topic Care Teams Clay Hoister Relationship Specialty Start Date End Date Srinivasan Tirado MD PCP - General Internal Medicine 02/08/14
== END 2024-09-30 15:00 | disposition home or self-care (01) ==
LOC: HO.HGS 14:40
PROVIDERS: PCP Internal Medicine; Visit Provider Surgery
DX: E04.1 Nontoxic single thyroid nodule (principal)
CPT/HCPCS: 99212

== ENCOUNTER 2025-02-17 13:49 | Outpatient (REF) | payer BC, SELFPAY ==
--- NOTE | ~2025-02-17 | MM_ITS ---
EXAMINATION: MM SCREENING DIGITAL BREAST TOMOSYNTHESIS, BILATERAL CLINICAL INFORMATION: Screening. Asymptomatic. History of right breast cancer in 2011 post lumpectomy. COMPARISON: Mammography: Comparison is made with available priors TECHNIQUE: Digital breast mammography with tomosynthesis is performed in both the craniocaudal and mediolateral oblique views along with computer-aided detection (CAD). FINDINGS: The breasts are heterogeneously dense, which may obscure small masses. Right: Right post surgical changes are stable. There are no significant masses, abnormal calcifications, or other abnormalities. Left: Focal asymmetry upper inner breast middle and posterior depth with questioned architectural distortion which is more conspicuous comparison to multiple priors dating back to 2019. No suspicious calcifications or other abnormal findings. MM/MM tomosynthesis screening BI IMPRESSION: Additional imaging is recommended ASSESSMENT: BI-RADS Category 0: Incomplete - Need additional Imaging Evaluation RECOMMENDATION: 1. Additional views of the left breast. 2. Targeted ultrasound if warranted after review of the additional views. 3. Radiology department staff will contact the patient for additional imaging. Additional Imaging required Electronically signed by: Vonnie Maya DO 02/18/2025 09:18 AM EDT
--- OUTSIDE RECORDS SUMMARY | 2025-02-17 17:33 | XMS_ITS | Encounter Summary ---
Author Organization [facility] Address [address] [place] [address] Care Team Providers Care Secretarial Stenographer Name Role Phone Srinivasan Tirado MD Primary Care Provider [phone] Srinivasan Tirado MD Primary Care Provider [phone] Dimitri Yousif MD Unavailable [phone] Encounter Details Date Type Department Care Team (Late st Contact Info) Description 03/26/2014 Scanned Document [address] [phone] Provider, Generic Social History Tobacco Use Types [...] on filedocumented in this encounter Care Teams Secretarial Stenographer Relationship Specialty Start Date End Date Srinivasan Tirado MD PCP - General 09/28/14 Srinivasan Tirado MD [address] [facility] [address] [place] [address] PCP - General 06/17/13 09/27/14 Dimitri Yousif MD [address] [place] [address] Referring Provider 05/22/17 documented as of this encounter
--- OUTSIDE RECORDS SUMMARY | 2025-02-17 17:33 | XMS_ITS | Clinical Summary ---
Author Organization [facility] Address [address] [place] [address] Care Team Providers Care Phone Banker Name Role Phone Srinivasan Tirado MD Primary Care Provider [phone] Allergies Active Allergy Reactions Criticality Noted Date [...] 70 10/01/2018 9:37 AM EDT Temperature 36.2 C (97.1 F) 12/26/2015 2:55 PM EDT Respiratory Rate 18 08/13/2014 1:40 PM EDT [...] - Td or Tdap) 05/09/2022 05/09/2012, 02/14/2007 Colon Cancer Screening (Colonoscopy) 09/06/2024 09/06/2014, 09/06/2014 Influenza Vaccine (#1) 2025 02/04/2019 RSV Adult > 60+ Yrs or (1 [...] Advance Directives For more information, please contact: [phone] Documents on File Type Date Recorded Patient Metal Pickling Equipment Operator Expl anation Advance Directive and Living Will 01/14/2015 2:49 PM Care Teams Phone Banker Relationship Specialty Start Date End Date Srinivasan Tirado MD PCP - General Internal Medicine 02/08/14
--- OUTSIDE RECORDS SUMMARY | 2025-02-17 17:33 | XMS_ITS | Encounter Summary ---
Author Organization [employer] Address [address] [facility] [address] [address] Care Team Providers Care Tank Riveter Name Role Phone Wendy Valadez Unassigned Primary [...] on filedocumented in this encounter Care Teams Tank Riveter Relationship Specialty Start Date End Date Wendy Valadezssgeorgina PCP - General Family Medicine 09/03/22 documented as of this encounter
--- OUTSIDE RECORDS SUMMARY | 2025-02-17 17:33 | XMS_ITS | Clinical Summary ---
Author Organization [facility] Address [address] [place] [address] Care Team Providers Care Medical Affairs Director Name Role Phone Srinivasan Tirado MD Primary Care Provider [phone] Surgical History Surgery Date Site/Laterality Comments APPENDECTOMY [...] - Td or Tdap) 05/09/2022 05/09/2012, 02/14/2007 Depression Screening 05/06/2024 COVID-19 Vaccine ( - 2023-2 5 season) 2025 Influenza Vaccine (#1) 2025 0, 02/04/2019, 04/15/2018 RSV Immunization Adult Patients (1 [...] age to complete this topic Care Teams Medical Affairs Director Relationship Specialty Start Date End Date Srinivasan Tirado MD PCP - General Internal Medicine 02/08/14
--- OUTSIDE RECORDS SUMMARY | 2025-02-17 17:33 | XMS_ITS | Clinical Summary ---
Author Organization [employer] Address [address] [facility] 7t [place] [address] Care Team Providers Care Machine Guide Base Winder Name Role Phone PcpWendy Unassigned Primary Care Provider U navailable Allergies Active Allergy Reactions Criticality Noted Date Comments Pollen Extract Rash High 09/07/2015 Rash on her face Medications No known medications Immunizations Immunization Administration Dates Next Due INFLUENZA INJECTABLE QUADRIV [...] 2022 8:19 AM EST Plan of Treatment Health Maintenance Due Date Last Done Comments CT Colonography 1964 Colonoscopy 1964 Colorectal Cancer Screening 1964 Depression Screening 1964 FIT DNA/Cologuard 1964 FIT 1964 FOBT 1964 HIV Screening 1964 SDOH Screening 1964 Sigmoidoscopy 1964 Disability Screening 1964 Alcohol/Substance Use Screening 1976 Hepatitis C Screening 01/18/1982 Pap Smear 01/18/1985 Cervical Cancer Screening 01/18/1994 HPV/Cotest 01/18/1994 Pneumococcal Vaccine: 50+ Years (1 of 1 - PCV) 01/18/2014 Zoster Vaccines (1 of 2) 01/18/2014 DTaP/Tdap/Td Vaccines (3 - Td or Tdap) 05/09/2022 05/09/2012, 02/14/2007 Dental X-Ray: Full Mouth 05/03/2023 05/02/2020 Dental X-Ray: Bitewings 08/14/2024 08/14/19 24, 07/04/2022, 04/12/2021, Additional history exists Dental Oral Exam 11/05/2024 05/07/2024, 02/2024, 07/04/2022, Additional history exists Dental Prophylaxis 11/05/2024 05/07/2024, 0 08/14/2023, 01/09/2023, Additional history exists COVID-19 Vaccine ( - season) 2025 09/10/2020, 08/13/2020 Influenza Vaccine (#1) 2025 0, 02/04/2019, 04/15/2018 Tobacco Screening 05/07/2025 05/07/2024 RSV Patients and [...] Relevant to Health Maintenance Insurance DENTAL - [facility] Care Teams Machine Guide Base Winder Relationship Specialty Start Date End Date PcpWendy Unassigned PCP - General Family Medicine 09/03/22
--- OUTSIDE RECORDS SUMMARY | 2025-02-17 17:33 | XMS_ITS | Clinical Summary ---
Author Organization [facility] Address [address] [place] [address] Care Team Providers Care Missile Technician Name Role Phone Srinivasan Tirado MD Primary Care Provider [phone] Dimitri Yousif MD Unavailable [phone] Allergies No known active allergies Medications [...] 62 05/28/2018 10:42 AM EST Temperature 36.8 C (98.3 F) 05/22/2017 10:50 AM EST Respiratory Rate - - Oxygen Saturation - [...] 05/06, 04/19/2016, Additional history exists Influenza Vaccine 12/04/2024 COVID-19 Vaccine (1 - season) 2025 RSV Vaccine 50 years and older and Patients (1 - [...] EST 1. No mammographic evidence of malignancy. 2. Dense breasts. Consider screening sonography. In the absence of clinical findings, next routine screening mammography would be recommended in one year. BI-RADS 2: BENIGN. d Narrative 05/28/2018 10:00 AM EST MM MAMMO SCREENING W/ TOMOSYNTHESIS BILATERAL: 05/28/2018 9:17 AM TECHNIQUE: Digital views were obtained. The examination is performed in the mediolateral oblique and craniocaudal projections using digital breast Tomosynthesis. Computer aided detection performed. CLINICAL HISTORY: Screening. Dense breast, Personal history of breast cancer, Family history of malignant neoplasm of breast COMPARISON: 04/19/2015 and 05/22/2017. FINDINGS: The mammary parenchyma is heterogeneously dense, which may obscure detection of small masses. No suspicious mass, suspicious architectural distortion, or suspicious calcium. Benign findings. Denise Kee APRN [facility] MAMMOGRAPHY ORDER YVONNE Final Result from Last 3 Months or Most Recently Relevant to Health Maintenance [place] [address] [place] [address] PPO Care Teams Missile Technician Relationship Specialty Start Date End Date Srinivasan Tirado MD PCP - General 09/28/14 Dimitri Yousif MD [address] [address] Referring Provider 05/22/17
--- OUTSIDE RECORDS SUMMARY | 2025-02-17 17:33 | XMS_ITS | Encounter Summary ---
Author Organization [employer] Address [address] [facility] [address] [place] [address] Care Team Providers Care Horser Up Name Role Phone Wendy Valadez Unassigned Primary [...] on filedocumented in this encounter Care Teams Horser Up Relationship Specialty Start Date End Date Wendy Valadezssgeorgina PCP - General Family Medicine 09/03/22 documented as of this encounter
--- OUTSIDE RECORDS SUMMARY | 2025-02-17 17:33 | XMS_ITS | Encounter Summary ---
Author Organization [facility] Address [address] [place] [address] Care Team Providers Care Airworthiness Safety Inspector Name Role Phone Srinivasan Tirado MD Primary Care Provider [phone] Dimitri Youisf MD Unavailable [phone] Encounter Details Date Type Department Care Team (Late st Contact Info) Description 04/19/2016 Scanned Document [address] [place] [phone] Provider, Generic Social History Tobacco Use Types [...] on filedocumented in this encounter Care Teams Airworthiness Safety Inspector Relationship Specialty Start Date End Date Srinivasan Tirado MD PCP - General 09/28/14 Dimitri Yousif MD [address] [address] Referring Provider 05/22/17 documented as of this encounter
== END 2025-02-17 13:50 | disposition home or self-care (01) ==
LOC: HO.MAMMO 13:49
PROVIDERS: PCP Internal Medicine; Visit Provider Internal Medicine
DX: Z12.31 Encounter for screening mammogram for malignant neoplasm of breast (principal)
CPT/HCPCS: 77063; 77067

== ENCOUNTER → 2025-02-17 14:15 | Outpatient (BNV) | payer BC, SELFPAY | PROVIDERS: PCP Internal Medicine; Visit Provider Internal Medicine | DX: Z12.31 Encounter for screening mammogram for malignant neoplasm of breast (principal) | CPT/HCPCS: 77063; 77067 ==

== ENCOUNTER 2025-02-24 13:26 | Outpatient (REF) | payer BC, SELFPAY ==
--- NOTE | ~2025-02-24 | US_ITS ---
EXAMINATION: US THYROID CLINICAL INFORMATION: Nontoxic single nodule. COMPARISON: August 19, 2024. TECHNIQUE: Linear transducer grayscale and color Doppler examination with attention to the region of the thyroid. FINDINGS: SIZE: Measurements of the thyroid lobes and nodules are given in sagittal, anteroposterior and transverse dimensions respectively. Right Thyroid Lobe: 6.2 x 2.2 x 3.8 cm, volume 26.9 mL. Previous: 7.3 x 2.0 x 3.6 cm, volume: 28 cc. Parenchyma: The gland echotexture is heterogeneous. Thyroid vascularity is increased. Left Thyroid Lobe: 5.5 x 1.8 x 2.0 cm, volume 10.0 mL. Previous: 5.5 x 1.7 x 1.7 cm, volume: 8.2 cc. Parenchyma: The gland echotexture is heterogeneous. Thyroid vascularity is normal. Isthmus: 0.5 cm in maximum AP dimension. Previous: 0.5 Estimated total number of nodules greater than or equal to 1 cm: 3. Cigar Machine Feeder nodules are described as follows: 1. Location: Isthmus. Size: 0.5 x 0.3 x 0.3 cm, volume 0.03 mL. Previous: 0.5 x 0.3 x 0.4 cm, volume: 0.03 Nodule characteristics: Composition: Solid (2). Echogenicity: Isoechoic (1). Shape: Not taller than wide (0). Margins: Smooth (0). Echogenic Foci: None (0) ACR TI-RADS total points: 3 ACR TI-RADS category: 3 2. Location: Midportion, right lobe. Size: 4.4 x 2.3 x 3.5 cm, volume 18.4 mL. Previous: 4.4 x 2.3 x 3.7 cm, volume: 19.0 cc. Nodule characteristics: Composition: Solid/almost completely solid (2). Echogenicity: Cannot be determined (1). Shape: Not taller than wide (0). Margins: Smooth (0). Echogenic Foci: Macrocalcifications (1). ACR TI-RADS total points: 4 ACR TI-RADS category: 4 3. Location: Lower pole right lobe. Size: 1.1 x 0.8 x 0.9 cm, volume 0.37 mL. Previous: 1.0 x 0.5 x 0.9 cm, volume: 0.2 cc. Nodule characteristics: Composition: Solid (2). Echogenicity: Hypoechoic (2). Shape: Not taller than wide (0). Margins: Smooth (0). Echogenic Foci: None (0). ACR TI-RADS total points: 4 ACR TI-RADS category: 4 4. Location: Lower pole left lobe. Size: 1.1 x 0.6 x 0.8 cm, volume 0.30 mL. Previous: 1.1 x 0.5 x 1.0 cm, volume: 0.3 cc. Nodule characteristics: Composition: Solid (2). Echogenicity: Isoechoic (1). Shape: Not taller than wide (0). Margins: Smooth (0). Echogenic Foci: None (0). ACR TI-RADS total points: 3 ACR TI-RADS category: 3 5. Location: Isthmus. Size: 0.5 x 0.5 x 0.6 cm, volume 0.08 mL. Previous: 0.6 x 0.3 x 0.6 cm, volume: 0.06 cc Nodule characteristics: Composition: Solid (2). Echogenicity: Hypoechoic (2). Shape: Not taller than wide (0). Margins: Smooth (0). Echogenic Foci: None (0). ACR TI-RADS total points: 4 ACR TI-RADS category: 4 NODES: No lymphadenopathy is seen in the tissue surrounding the thyroid gland. US/US thyroid IMPRESSION: ACR TI-RADS category: 3 and 4 nodules. Overall similar since prior exam. ACR TI-RADS RECOMMENDATION REFERENCE: Ultrasound-guided fine-needle aspiration, followup ultrasound, no further follow up. * TR1 (0 point) and TR2 (2 points): No FNA or follow up. * TR3 (3 points): FNA if more than or equal to 2.5 cm in maximum dimension, followup ultrasound in 1, 3 and 5 years if 1.5 to 2.4 cm in maximum dimension. * TR4 (4-6 points): FNA if more than or equal to 1.5 cm in maximum dimension, followup ultrasound in 1, 2, 3 and 5 years if 1 to 1.4 cm in maximum dimension. * TR5 (more than or equal to 7 points): FNA if more than or equal to 1 cm in maximum dimension, followup ultrasound every year for 5 years if 0.5 to 0.9 cm in maximum dimension. * TR3, TR4 or TR5 nodules that are below the size threshold for followup receive no follow up. Electronically signed by: Gonzalez Torres MD 02/24/2025 02:47 PM EDT RP
--- OUTSIDE RECORDS SUMMARY | 2025-02-24 19:05 | XMS_ITS | Clinical Summary ---
Author Organization [facility] Address [address] [place] [address] Care Team Providers Care Patternmaker Plastics Name Role Phone Srinivasan Tirado MD Primary Care Provider [phone] Dimitri Yousif MD Unavailable [phone] Allergies No known active allergies Medications [...] Most Recently Relevant to Health Maintenance [place] [address] [place] [address] PPO Care Teams Patternmaker Plastics Relationship Specialty Start Date End Date Srinivasan Tirado MD PCP - General 09/28/14 Dimitri Yousif MD [address] [address] Referring Provider 05/22/17
--- OUTSIDE RECORDS SUMMARY | 2025-02-24 19:05 | XMS_ITS | Encounter Summary ---
Author Organization [employer] Address [address] [facility] [place] [address] Care Team Providers Care Math And Physics Instructor Name Role Phone Wendy Valadez Unassigned Primary [...] on filedocumented in this encounter Care Teams Math And Physics Instructor Relationship Specialty Start Date End Date Wendy Valadezssgeorgina PCP - General Family Medicine 09/03/22 documented as of this encounter
--- OUTSIDE RECORDS SUMMARY | 2025-02-24 19:05 | XMS_ITS | Clinical Summary ---
Author Organization [employer] Address [address] [facility] 7t [place] [address] Care Team Providers Care Professional Services Manager Name Role Phone PcpWendy Unassigned Primary Care [...] Relevant to Health Maintenance Insurance [facility]AL - [facility] Care Teams Professional Services Manager Relationship Specialty Start Date End Date PcpWendy Unassigned PCP - General Family Medicine 09/03/22
--- OUTSIDE RECORDS SUMMARY | 2025-02-24 19:05 | XMS_ITS | Encounter Summary ---
Author Organization [employer] Address [address] [facility] [place] [address] Care Team Providers Care Parakeet Raiser Name Role Phone Wendy Valadez Unassigned Primary [...] on filedocumented in this encounter Care Teams Parakeet Raiser Relationship Specialty Start Date End Date Wendy Valadezssgeorgina PCP - General Family Medicine 09/03/22 documented as of this encounter
--- OUTSIDE RECORDS SUMMARY | 2025-02-24 19:05 | XMS_ITS | Encounter Summary ---
Author Organization [facility] Address [address] [place] [address] Care Team Providers Care Air Route Controller Name Role Phone Srinivasan Tirado MD Primary Care Provider [phone] Srinivasan Tirado MD Primary Care Provider [phone] Dimitri Yousif MD Unavailable [phone] Encounter Details Date Type Department Care Team (Late st Contact Info) Description 03/26/2014 Scanned Document [address] [phone] Provider, Generic Social History Tobacco Use Types [...] on filedocumented in this encounter Care Teams Air Route Controller Relationship Specialty Start Date End Date Srinivasan Tirado MD PCP - General 09/28/14 Srinivasan Tirado MD [address] [facility] [address] [place] [address] PCP - General 06/17/13 09/27/14 Dimitri Yousif MD [address] [place] [id number] Referring Provider 05/22/17 documented as of this encounter
--- OUTSIDE RECORDS SUMMARY | 2025-02-24 19:05 | XMS_ITS | Clinical Summary ---
Author Organization [facility] Address [address] [place] [address] Care Team Providers Care Health And Wellness Sales Consultant Name Role Phone Srinivasan Tirado MD Primary Care Provider [phone] Allergies Active Allergy Reactions Criticality Noted Date [...] Advance Directives For more information, please contact: [phone] Documents on File Type Date Recorded Patient Endodontic Assistant Expl anation Advance Directive and Living Will 01/14/2015 2:49 PM Care Teams Health And Wellness Sales Consultant Relationship Specialty Start Date End Date Srinivasan Tirado MD PCP - General Internal Medicine 02/08/14
--- OUTSIDE RECORDS SUMMARY | 2025-02-24 19:05 | XMS_ITS | Encounter Summary ---
Author Organization [facility] Address [address] [place] [address] Care Team Providers Care Medicare Biller Name Role Phone Srinivasan Tirado MD Primary Care Provider [phone] Dimitri Yousif MD Unavailable [phone] Encounter Details Date Type Department Care Team (Late st Contact Info) Description 04/19/2016 Scanned Document [address] [place] [phone] Provider, Generic Social History Tobacco Use Types [...] on filedocumented in this encounter Care Teams Medicare Biller Relationship Specialty Start Date End Date Srinivasan Tirado MD PCP - General 09/28/14 Dimitri Yousif MD [address] [address] Referring Provider 05/22/17 documented as of this encounter
--- OUTSIDE RECORDS SUMMARY | 2025-02-24 19:05 | XMS_ITS | Clinical Summary ---
Author Organization [facility] Address [address] [place] [address] Care Team Providers Care Gynecologist Name Role Phone Srinivasan Tirado MD Primary Care Provider [phone] Surgical History Surgery Date Site/Laterality Comments APPENDECTOMY [...] age to complete this topic Care Teams Gynecologist Relationship Specialty Start Date End Date Srinivasan Tirado MD PCP - General Internal Medicine 02/08/14
== END 2025-02-24 13:27 | disposition home or self-care (01) ==
LOC: HO.US 13:26
PROVIDERS: PCP Internal Medicine; Visit Provider Surgery
DX: E04.1 Nontoxic single thyroid nodule (principal)
CPT/HCPCS: 76536

== ENCOUNTER → 2025-02-24 13:40 | Outpatient (BNV) | payer BC, SELFPAY | PROVIDERS: PCP Internal Medicine; Visit Provider Radiology Diagnostic Radiology | DX: E04.2 Nontoxic multinodular goiter (principal) | CPT/HCPCS: 76536 ==

== ENCOUNTER → 2025-03-31 13:30 | Outpatient (BNV) | payer BC, SELFPAY | PROVIDERS: PCP Internal Medicine; Visit Provider Internal Medicine | DX: R92.8 Other abnormal and inconclusive findings on diagnostic imaging of breast (principal) | CPT/HCPCS: 76642; 77061; 77065 ==

== ENCOUNTER 2025-03-31 13:42 | Outpatient (REF) | payer BC, SELFPAY ==
--- NOTE | ~2025-03-31 | US_ITS ---
EXAMINATION: MM DIAGNOSTIC DIGITAL BREAST TOMOSYNTHESIS, LEFT Limited left breast ultrasound. CLINICAL INFORMATION: Call back from screening for focal asymmetry in the upper inner left breast. COMPARISON: Mammography: Prior's on PACS. TECHNIQUE: Digital breast tomosynthesis is performed in both the craniocaudal and mediolateral oblique views along with computer-aided detection (CAD). Synthesized 2D images are generated from the tomosynthesis. FINDINGS: The breasts are heterogeneously dense, which may obscure small masses. Focal asymmetry in the upper inner left breast partially effaces on additional imaging projections. No suspicious calcifications or other abnormal findings. Targeted color Doppler ultrasound scanning in the upper inner breast from 7-1 o'clock demonstrates normal fibroglandular breast tissue. There is no sonographic abnormal finding. US/US Breast LT Limited Mamm Only IMPRESSION: Focal asymmetry upper inner breast which partially effaces and without sonographic correlate. Recommend 6 month follow-up for further evaluation of stability. ASSESSMENT: BI-RADS Category 3: Probably benign RECOMMENDATION: 6 Month F/U Results were provided to the patient at time of visit by the technologist. This patient's information was entered into a reminder system with a target due date for their next mammogram. Electronically signed by: Vonnie Maya DO 03/31/2025 03:12 PM [place]
--- OUTSIDE RECORDS SUMMARY | 2025-03-31 16:45 | XMS_ITS | Encounter Summary ---
Author Organization [employer] Address [address] [facility] [place] [address] Care Team Providers Care Chef Instructor Name Role Phone Wendy Valadez Unassigned [...] on filedocumented in this encounter Care Teams Chef Instructor Relationship Specialty Start Date End Date Wendy Valadezssgeorgina PCP - General Family Medicine 09/03/22 documented as of this encounter
--- OUTSIDE RECORDS SUMMARY | 2025-03-31 16:45 | XMS_ITS | Clinical Summary ---
Author Organization [facility] Address [address] [place] [address] Care Team Providers Care Trail Construction Worker Name Role Phone Srinivasan Tirado MD Primary Care Provider [phone] Dimitri Yousif MD Unavailable [phone] Allergies No known active allergies Medications [...] Most Recently Relevant to Health Maintenance [place] [address] [place] [address] PPO Care Teams Trail Construction Worker Relationship Specialty Start Date End Date Srinivasan Tirado MD PCP - General 09/28/14 Dimitri Yousif MD [address] [address] Referring Provider 05/22/17
--- OUTSIDE RECORDS SUMMARY | 2025-03-31 16:45 | XMS_ITS | Encounter Summary ---
Author Organization [employer] Address [address] [facility] [place] [address] Care Team Providers Care Web Content Editor Name Role Phone Wendy Valadez Unassigned Primary [...] on filedocumented in this encounter Care Teams Web Content Editor Relationship Specialty Start Date End Date Wendy Valadezssgeorgina PCP - General Family Medicine 09/03/22 documented as of this encounter
--- OUTSIDE RECORDS SUMMARY | 2025-03-31 16:45 | XMS_ITS | Clinical Summary ---
Author Organization [facility] Address [address] [place] [address] Care Team Providers Care Fiscal Agent Name Role Phone Srinivasan Tirado MD Primary Care Provider [phone] Surgical History Surgery Date Site/Laterality Comments APPENDECTOMY [...] Used Date Smoking Tobacco: Former Cigarettes 1 Q uit: 01/14/2010 Smokeless Tobacco: Never Alcohol [...] 05/09/2012, 02/14/2007 Depression Screening 05/06/2024 COVID-19 Vaccine (1 - 2024-2 6 season) 2025 Influenza Vaccine (#1) 2025 0, [...] age to complete this topic Care Teams Fiscal Agent Relationship Specialty Start Date End Date Srinivasan Tirado MD PCP - General Internal Medicine 02/08/14
--- OUTSIDE RECORDS SUMMARY | 2025-03-31 16:45 | XMS_ITS | Encounter Summary ---
Author Organization [facility] Address [address] [place] [address] Care Team Providers Care Packaging Inspector Name Role Phone Srinivasan Tirado MD Primary Care Provider Dimitri Yousif MD Unavailable [phone] Encounter Details Date Type Department Care Team (Late st Contact Info) Description 04/19/2016 Scanned Document [address] [place] [phone] Provider, Generic Social History Tobacco Use Types [...] on filedocumented in this encounter Care Teams Packaging Inspector Relationship Specialty Start Date End Date Srinivasan Tirado MD PCP - General 09/28/14 Dimitri Yousif MD [address] [address] Referring Provider 05/22/17 documented as of this encounter
--- OUTSIDE RECORDS SUMMARY | 2025-03-31 16:45 | XMS_ITS | Encounter Summary ---
Author Organization [facility] Address [address] [place] [address] Care Team Providers Care Menhaden Fishing Crew Member Name Role Phone Srinivasan Tirado MD Primary Care Provider [phone] Srinivasan Tirado MD Primary Care Provider [phone] Dimitri Yousif MD Unavailable [phone] Encounter Details Date Type Department Care Team (Late st Contact Info) Description 03/26/2014 Scanned Document [address] [phone] Provider, Generic Social History Tobacco Use Types [...] on filedocumented in this encounter Care Teams Menhaden Fishing Crew Member Relationship Specialty Start Date End Date Srinivasan Tirado MD PCP - General 09/28/14 Srinivasan Tirado MD [address] [facility] [address] [place] [address] PCP - General 06/17/13 09/27/14 Dimitri Yousif MD [address] [place] [id number] Referring Provider 05/22/17 documented as of this encounter
--- OUTSIDE RECORDS SUMMARY | 2025-03-31 16:46 | XMS_ITS | Clinical Summary ---
Author Organization [employer] Address [address] [facility] 7t [place] [address] Care Team Providers Care Estimating Manager Name Role Phone PcpWendy Unassigned Primary [...] Insurance [facility] - [facility] Care Teams Estimating Manager Relationship Specialty Start Date End Date PcpWendy Unassigned PCP - General Family Medicine 09/03/22
--- OUTSIDE RECORDS SUMMARY | 2025-03-31 16:46 | XMS_ITS | Clinical Summary ---
Author Organization [facility] Address [address] [place] [address] Care Team Providers Care Regional Refrigerated Cdl Truck Driver Name Role Phone Srinivasan Tirado MD Primary Care Provider [phone] Allergies Active Allergy Reactions Criticality Noted Date [...] Advance Directives For more information, please contact: [phone] Documents on File Type Date Recorded Patient Manager Entry Expl anation Advance Directive and Living Will 01/14/2015 2:49 PM Care Teams Regional Refrigerated Cdl Truck Driver Relationship Specialty Start Date End Date Srinivasan Tirado MD PCP - General Internal Medicine 02/08/14
== END 2025-03-31 13:43 | disposition home or self-care (01) ==
LOC: HO.MAMMO 13:42
PROVIDERS: PCP Internal Medicine; Visit Provider Internal Medicine
DX: N64.89 Other specified disorders of breast (principal)
CPT/HCPCS: 76642; 77061; 77065